=== PATIENT | female | born 1975 | race Caucasian/White ===

== ENCOUNTER 2020-03-22 07:30 | Outpatient (CLI) | payer BC, SELFPAY ==
--- NOTE | ~2020-03-22 | MM_ITS ---
EXAMINATION: MM screening [facility] BI w [facility] HISTORY: Screening mammogram TECHNIQUE: Craniocaudal and mediolateral oblique 3-D tomosynthesis images were obtained and synthetic 2-D images were generated. CAD analysis was submitted and interpreted. COMPARISON: 04/03/2018, 04/26/2011 BREAST PARENCHYMAL COMPOSITION: The breasts are heterogeneously dense, which may obscure small masses . FINDINGS: There is no evidence of suspicious mass, calcification, or architectural distortion to sugg est malignancy in either breast. There has been no suspicious interval change. IMPRESSION: 1. No mammographic evidence of malignancy. 2. Recommend routine screening mammography in one year. BI-RADS Category 1: Negative Reviewed, dictated and finalized at location A.
== END 2020-03-22 07:31 | disposition home or self-care (01) ==
LOC: ANHIMG 07:33
PROVIDERS: PCP Family Medicine Sports Medicine; Visit Provider Obstetrics & Gynecology
DX: Z12.31 Encounter for screening mammogram for malignant neoplasm of breast (principal)
CPT/HCPCS: 77063; 77067

== ENCOUNTER 2021-04-26 12:09 | Outpatient (CLI) | payer BC, SELFPAY ==
--- NOTE | ~2021-04-26 | MM_ITS ---
EXAMINATION: MM screening [facility] w [facility] HISTORY: Screening TECHNIQUE: Craniocaudal and mediolateral oblique 3-D tomosynthesis images were obtained and synthetic 2-D images were generated. CAD analysis was submitted and interpreted. COMPARISON: Comparison to multiple prior studies sequentially, with oldest reviewed study dated 04/26. BREAST PARENCHYMAL COMPOSITION: The breasts are extremely dense, which lowers the sensitivity of mamm ography. FINDINGS: There is no evidence of suspicious mass, calcification, or architectural distortion to sugg est malignancy in either breast. There has been no suspicious interval change. IMPRESSION: 1. No mammographic evidence of malignancy. 2. Recommend routine screening mammography in one year. BI-RADS Category 1: Negative Reviewed, dictated and finalized at location D.
== END 2021-04-26 12:10 | disposition home or self-care (01) ==
LOC: ANHIMG 12:13
PROVIDERS: PCP Family Medicine Sports Medicine; Visit Provider Obstetrics & Gynecology
DX: Z12.31 Encounter for screening mammogram for malignant neoplasm of breast (principal)
CPT/HCPCS: 77063; 77067

== ENCOUNTER 2022-10-24 13:55 | Outpatient (CLI) | payer BC, SELFPAY ==
--- NOTE | ~2022-10-24 | MM_ITS ---
EXAMINATION: MM screening [facility] BI w [facility] HISTORY: Screening mammogram TECHNIQUE: Craniocaudal and mediolateral oblique 3-D tomosynthesis images were obtained and synthetic 2-D images were generated. CAD analysis was submitted and interpreted. COMPARISON: 06/27/2021, 03/22/2020, 04/03/2018 BREAST PARENCHYMAL COMPOSITION: The breasts are heterogeneously dense, which may obscure small masses . FINDINGS: No suspicious mass, calcification, or architectural distortion are identified in either faye ast to suggest malignancy. There has been no suspicious interval change. IMPRESSION: 1. No mammographic evidence of malignancy. 2. Recommend routine screening mammography in one year. BI-RADS Category 1: Negative Reviewed, dictated and finalized at location A. STERED RADIATION THERAPIST
== END 2022-10-24 13:56 | disposition home or self-care (01) ==
LOC: ANHIMG 13:55
PROVIDERS: PCP Family Medicine Sports Medicine; Visit Provider Obstetrics & Gynecology
DX: Z12.31 Encounter for screening mammogram for malignant neoplasm of breast (principal)
CPT/HCPCS: 77063; 77067

== ENCOUNTER 2023-12-25 09:40 | Outpatient (CLI) | payer BC, SELFPAY ==
--- NOTE | ~2023-12-25 | MM_ITS ---
EXAMINATION: MM screening [facility] w [facility] HISTORY: Screening TECHNIQUE: Craniocaudal and mediolateral oblique 3-D tomosynthesis images were obtained and synthetic 2-D images were generated. CAD analysis was submitted and interpreted. COMPARISON: Comparison to multiple prior studies sequentially, with oldest reviewed study dated 04/03. BREAST PARENCHYMAL COMPOSITION: Dense: The breasts are heterogeneously dense, which may obscure small masses FINDINGS: There is no evidence of suspicious mass, calcification, or architectural distortion to sugg est malignancy in either breast. There has been no suspicious interval change. IMPRESSION: 1. No mammographic evidence of malignancy. 2. Recommend routine screening mammography in one year. BI-RADS Category 1: Negative Reviewed, dictated and finalized at location A.
== END 2023-12-25 09:41 | disposition home or self-care (01) ==
LOC: ANHIMG 09:44
PROVIDERS: PCP Family Medicine; Visit Provider Obstetrics & Gynecology
DX: Z12.31 Encounter for screening mammogram for malignant neoplasm of breast (principal)
CPT/HCPCS: 77063; 77067

== ENCOUNTER 2025-01-21 15:19 | Outpatient (CLI) | payer BC, SELFPAY ==
--- NOTE | ~2025-01-21 | MM_ITS ---
EXAMINATION: MM screening candelario BI w kimberly HISTORY: Screening TECHNIQUE: Craniocaudal and mediolateral oblique 3-D tomosynthesis images were obtained and synthetic 2-D images were generated. CAD analysis was submitted and interpreted. COMPARISON: Comparison to multiple prior studies sequentially, with oldest reviewed study dated 04/03/2018. BREAST PARENCHYMAL COMPOSITION: Dense: The breasts are extremely dense, which lowers the sensitivity of mammography. FINDINGS: There is no evidence of suspicious mass, calcification, or architectural distortion to sugg est malignancy in either breast. There has been no suspicious interval change. IMPRESSION: 1. No mammographic evidence of malignancy. 2. Recommend routine screening mammography in one year. BI-RADS Category 1: Negative Reviewed, dictated and finalized at location B.
--- OUTSIDE RECORDS SUMMARY | 2025-01-21 15:22 | XMS_ITS | Referral Summary ---
Author Organization [facility] [address] [facility] Address [address] [place] [address] Care Team Providers Care Aquatics Manager Name Role Phone Antione Wolfe MD Primary Care Provider [phone] Encounters Date Type Department Care Team Description 12/09/2024 10:30 AM BOW MACHINE OPERATOR Office Visit [facility] Hand Surgery [address] [place] [phone] Lencho Ward MD Ganglion cyst of dorsum of left wrist (Primary Dx) 11/18/2024 8:30 AM BOW MACHINE OPERATOR Office Visit [facility] Hand Surgery [address] [place] [phone] Lencho Ward MD Ganglion cyst of dorsum of left wrist (Primary Dx) 10/23/2024 7:00 AM BOW MACHINE OPERATOR Office Visit [facility] Hand Surgery [address] [place] [phone] Lencho Ward MD Ganglion cyst of dorsum of left wrist (Primary Dx) from Last 3 Months Allergies Active Allergy Reactions Criticality Noted Date Comments Bacitracin Rash Medium 08/18/2019 Rash Gluten Protein Other (See comments) Low 06/06/2022 Joint swelling Ulcers in mouth Lactose Diarrhea Low 06/06/2022 Levofloxacin Swelling Medium 08/05/2019 Swelling Neomycin Rash Medium 08/18/2019 Rash Jdwxraiv-Ygqbsgvauf-Mgd ymyxin Rash Medium 08/05/2019 Neomycin-Polymyxin B Gu Rash Medium 10/31/2019 Paroxetine Rash,Hives,Itching Medium 08/05/2019 Hives Polymyxin B Rash Medium 08/18/2019 Rash Medications FLUoxetine (PROzac) 20 mg capsule TK ONE C PO QD 3 9 Active EPINEPHrine (EPIPEN 2-WAQAS) 0.3 mg/0.3 mL auto-injection syringe EpiPen 2-Waqas 0.3 mg/0.3 mL injection, auto-injector INJ 0.3 MG IM ONCE MANY GIVE A SECOND DOSE IN 10 TO 15 MINUTES FOR PERSISTENT SYSTOMS Active aspirin 325 mg 81 mg Activ e cetirizine (ZyrTEC) 10 mg tablet Take 1 tablet (10 mg total) by mouth daily Active predniSONE (DELTASONE) 10 mg tablet Take 0.5 tablets (5 mg) by mouth daily 5 tablet 0 Active azelastine (ASTELIN) 137 mcg (0.1 %) nasal spray Administer 2 sprays into each nostril 2 (two) times a day 2 Active cholecalciferol (VITAMIN D-3) 2000 unit tablet Take 2 tablets (4,000 Units total) by mouth daily Active dicyclomine (BENTYL) 10 mg capsule Take 2 capsules (20 mg total) by mouth 4 (four) times a day before meals and nightly Active famotidine (PEPCID) 40 mg tablet Take 0.5 tablets (20 mg total) by mouth 2 (two) times a day Active fluticasone propionate (Flonase Allergy Relief) 50 mcg/actuation nasal spray Administer 1 spray into each nostril 2 (two) times a day Active fluticasone-ume clidin-vilanter (Trelegy Ellipta) 100-62.5-25 mcg inhaler Inhale 1 puff daily 4 Active amLODIPine (NORVASC) 2.5 mg tablet Take 1 tablet (2.5 mg total) by mouth daily 1 Active montelukast (SINGULAIR) 10 mg tablet Take 1 tablet (10 mg total) by mouth daily Active Vienva 0.1-20 mg-mcg per tablet 4 Active traMADoL (ULTRAM) 50 mg tablet Take 1 tablet (50 mg total) by mouth every 8 (eight) hours as needed for pain 30 tablet 4 Active zolpidem (AMBIEN) 5 mg tablet Take 1 tablet (5 mg total) by mouth nightly 4 Active Symbicort 160-4.5 mcg/actuation inhaler Inhale 2 puffs 2 (two) times a day Active atorvastatin (LIPITOR) 20 mg tablet Take 1 tablet (20 mg total) by mouth daily 4 Active triamcinolone (KENALOG) 0.1 % cream 1 tomas applied topically twice a day after shots for 7 days Active phenylephrine-a cetaminophen 5-325 mg tablet every 4 hours Active olopatadine (Pataday Once Daily Relief) 0.2 % ophthalmic solution daily Active norethindrone-e .estradioL-iron (Lo Loestrin Fe) 1 mg-10 mcg (24)/10 mcg (2) tablet per tablet daily Active noreth-ethinyl estradioL-iron 0.4mg-35mcg(21) and 75 mg (7) tablet,chewable Take 1 tablet by mouth nightly Active nirmatrelvir 300 mg-ritonavir 100 mg (Paxlovid) tablets,dose pack tablets in a dose pack every 12 hours 4 Active ipratropium (ATROVENT) 42 mcg (0.06 %) nasal spray every 8 hours Acti ve diazePAM (VALIUM) 5 mg tablet Take 1 tablet (5 mg total) by mouth 3 (three) times a day as needed 4 Active Active Problems Problem Noted Date Diagnosed Date Ganglion of left wrist 09/11/2024 Left wrist pain 09/11/2024 Left wrist tendinitis 03/07/2020 Ganglion cyst of dorsum of left wrist 08/05/2019 Social History Tobacco Use Types Packs/Day Years Used Date Smoking Tobacco: Never Smokeless Tobacco: Never Tobacco Cessation:Counseling Given: Not Answered Alcohol Use Standard Drinks/Week Comments Yes 0 (1 standard drink = 0.6 oz pur e alcohol) social AUDIT-C Answer Date Recorded Q1: How often do you have a drink containing alc ohol? Monthly or less 09/22/2024 Q2: How many drinks containi ng alcohol do you have on a typical day when you are drinking? 1 or 2 09/22/2024 Q3: How often do you have si x or more drinks on one occasion? Never 09/22/2024 Personal Safety Answer Date Recorded Have you ever been in or are you currently in a harmful physical or emotional relationship or is someone making you feel afraid or unsafe? Denies 09/22/2024 Comments No Sex and Gender Information Value Date Recorded Sex Assigned at Not on file Legal Sex Female 10:57 AM BOW MACHINE OPERATOR Gender Identity Not on file Sexual Orientation Not on file Last Filed Vital Signs Vital Sign Reading Time Taken Comments Blood Pressure 119/83 09/22/2024 11:10 AM BOW MACHINE OPERATOR Pulse 91 09/22/2024 11:15 AM BOW MACHINE OPERATOR Temperature 36.6 C (97.8 F) 09/22/2024 10:40 AM BOW MACHINE OPERATOR Respiratory Rate 18 09/22/2024 11:10 AM BOW MACHINE OPERATOR Oxygen Saturation 100% 09/22/2024 11:15 AM BOW MACHINE OPERATOR Inhaled Oxygen Concentration - - Weight 61.4 kg (135 lb 4.8 oz) 09/22/2024 7:35 A M BOW MACHINE OPERATOR Height 160 cm (5' 3 ) 09/22/2024 7:35 AM BOW MACHINE OPERATOR Body Mass Index 23.97 09/22/2024 7:35 AM BOW MACHINE OPERATOR Plan of Treatment Not on file Insurance [facility] [place] Care Teams Aquatics Manager Relationship Specialty Start Date End Date Antione Wolfe MD [address] [place] [address] PCP - General Family Medicine 10/05/24
--- OUTSIDE RECORDS SUMMARY | 2025-01-21 15:22 | XMS_ITS | Clinical Summary ---
Author Organization [facility] [address] [facility] Address [facility] [place] [address] Care Team Providers Care Manager Bank Name Role Phone Antione Wolfe MD Primary Care Provider Allergies Active Allergy Reactions Criticality Noted Date Comments Bacitracin Rash Medium 08/18/2019 Rash Gluten Protein Other (See comments) Low 06/06/2022 Joint swelling Ulcers in mouth Lactose Diarrhea Low 06/06/2022 Levofloxacin Swelling Medium 08/05/2019 Swelling Neomycin Rash Medium 08/18/2019 Rash Bxwohzlw-Wpwitpsspf-Kjw ymyxin Rash Medium 08/05/2019 Neomycin-Polymyxin B Gu [...] cyst of dorsum of left wrist 08/05/2019 Encounters Date Type Department Care Team Description 12/09/2024 10:30 AM RELIGIOUS ACTIVITIES DIRECTOR Office Visit [facility] Hand Surgery [address] [place] [phone] Lencho Ward MD Ganglion cyst of dorsum of left wrist (Primary Dx) 11/18/2024 8:30 AM RELIGIOUS ACTIVITIES DIRECTOR Office Visit [facility] Hand Surgery [address] [place] [phone] Lencho Ward MD Ganglion cyst of dorsum of left wrist (Primary Dx) 10/23/2024 7:00 AM RELIGIOUS ACTIVITIES DIRECTOR Office Visit [facility] Hand Surgery [address] [facility] [address] [place] [phone] Lencho Ward MD Ganglion cyst of dorsum of left wrist (Primary Dx) from Last 3 Months Surgical History Surgery Date Site/Laterality Comments TONSILLECTOMY WRIST SURGERY Left mass excision TUBAL LIGATION WRIST MASS EXCISION 09/22/2024 Left Medical History Medical History Date Comments Asthma Depression Hypercholesteremia Hypertension Allergic rhinitis PONV (postoperative nausea and vomiting) Motion sickness Family History Medical History Relation Name Comments Heart disease Father Arthritis Mother Relation Name Status Comments Father Mother Social History Tobacco Use Types Packs/Day Years [...] on file Legal Sex Female 10:57 AM RELIGIOUS ACTIVITIES DIRECTOR Gender Identity Not on file Sexual Orientation Not on file Obstetrics History Last Filed Vital Signs Vital Sign Reading Time Taken Comments Blood Pressure 119/83 09/22/2024 11:10 AM RELIGIOUS ACTIVITIES DIRECTOR Pulse 91 09/22/2024 11:15 AM RELIGIOUS ACTIVITIES DIRECTOR Temperature 36.6 C (97.8 F) 09/22/2024 10:40 AM RELIGIOUS ACTIVITIES DIRECTOR Respiratory Rate 18 09/22/2024 11:10 AM RELIGIOUS ACTIVITIES DIRECTOR Oxygen Saturation 100% 09/22/2024 11:15 AM RELIGIOUS ACTIVITIES DIRECTOR Inhaled Oxygen Concentration - - Weight 61.4 kg (135 lb 4.8 oz) 09/22/2024 7:35 A M RELIGIOUS ACTIVITIES DIRECTOR Height 160 cm (5' 3 ) 09/22/2024 7:35 AM RELIGIOUS ACTIVITIES DIRECTOR Body Mass Index 23.97 09/22/2024 7:35 AM RELIGIOUS ACTIVITIES DIRECTOR Plan of Treatment Health Maintenance Due Date Last Done Comments Breast Cancer Screening-Mammogram 1975 Cervical Cancer Screening 1975 Colon Cancer Screening-Colonoscopy 1975 Depression Screening 1975 Hepatitis C Screening 1975 DTaP/Tdap/Td Vaccine (1 - Tdap) 1986 Hepatitis B Screening 1993 Regular Well Visit/Exam 18-64 1993 Influenza Vaccine (Season Ended) 2025 09/22/2018, 09/06/2016, 07/11/2015, Additional history exists Pneumococcal vaccine <65 Aged Out 07/05/2016 No longer eligible based on patient's age to complete this topic Insurance [employer] Care Teams Manager Bank Relationship Specialty Start Date End Date Antione Wolfe MD [facility] [place] [address] PCP - General Family Medicine 10/05/24
--- OUTSIDE RECORDS SUMMARY | 2025-01-21 15:23 | XMS_ITS ---
Author Organization [facility] Address [address] [place] [address] Care Team Providers Care Automatic Chief Name Role Phone Yaneth Antione Primary Care Provider UnavailAdriana Obando Unavailable [phone] BarneyMoses Unavailable [phone] REASON FOR VISIT [facility], on Tirzepatide, started back program today 12/30/2024, reports no perceivable appetite suppression., Desired weight loss: 10-15 lbs, +0.5 lbs since last visit, -6.1 lbs total, No history MTC or MEN2 or pancreatitis, Concerned about future DM and OA Medications Medication SIG (Take, Route, Frequency, Duration) Notes Start Date End Date Status Ipratropium [place] 0.06 % 2 spray(s) intranasally 3 times a day for 30 days Not-Taking Symbicort 160-4.5 MCG/ACT 2 puff(s) inhaled 2 times a day for 30 days Not-Taking SIT (CLUSTER) VARIABLE PER SCHEDULE SC PER SCHEDULE for TO BE DETERMINED *Please review for potential replacement for e-prescription and drug interaction check* Not-Taking Dicyclomine HCl 10 MG 2 cap(s) orally 4 times a day PRN Not-Taking Trelegy Ellipta 100 MCG-62.5 MCG-25 MCG/INH 1 PUFF(S) INHALED ONCE A DAY for 30 DAYS *Please review and pick correct strength-formula tion from Medispan options. If intended option is not shown, discontinue and re-order from Quick Search* 12/17/2023 Not-Taking OLOPATADINE NASAL 665 MCG/INH 2 SPRAY(S) INTRANASALLY 2 TIMES A DAY for 30 DAYS *Please review for potential replacement for e-prescription and drug interaction check* Not-Taking SIT (TRADITIONAL) VARIABLE PER SCHEDULE SC PER SCHEDULE for TO BE DETERMINED *Please review for potential replacement for e-prescription and drug interaction check* Not-Taking Montelukast Sodium 10 MG TAKE 1 TABLET BY MOUTH DAILY for 30 Not-Taking Pataday 0.2 % 1 gtt in each affected eye once a day Not-Taking Paxlovid (300/100) 20 x 150 MG & 10 x 100MG 3 tablets Orally Twice a day for 5 days 06/01/2024 Not-Taking Flonase Allergy Relief 50 MCG/ACT 1 spray(s) intranasally twice a day for 30 days Active ZyrTEC Allergy 10 MG 2 tab(s) orally Qday, and prior to SCIT dosing Active Mupirocin 2 % 1 application Externally Twice a day for 5 day(s) 11/24/2024 Active Auvi-Q 0.3 MG/0.3ML as directed intramuscularly once for 30 day(s) Active SUDAFED PE PRESSURE PLUS PAIN 325 MG-5 MG 2 TAB(S) ORALLY EVERY 4 HOURS *Please review for potential replacement for e-prescription and drug interaction check* Active D3 2000 INTL UNITS DIRECTED ORALLY ONCE A DAY for 30 DAY(S) *Please review and pick correct strength-formula tion from MiTurno options. If intended option is not shown, discontinue and re-order from Quick Search* Active FLUoxetine HCl 20 MG 1 cap(s) orally once a day Active Singulair 10 MG 1 tab(s) orally once a day for 30 day(s) Active Atorvastatin Calcium 10 MG 1 tab(s) orally once a day Active Lo Loestrin Fe 1 MG-10 MCG / 10 MCG 1 tab(s) orally once a day Active Symbicort 160-4.5 MCG/ACT INHALE 2 PUFFS BY MOUTH TWICE DAILY for 30 Active Azelastine HCl 137 MCG/SPRAY 2 spray(s) intranasally 2 times a day for 30 day(s) 11/15/2021 Active TRIAMCINOLONE ACETONIDE TOPICAL 0.1% 1 tomas applied topically twice a day after shots for 7 days Active amLODIPine Besylate 2.5 MG 1 tab(s) orally once a day for 30 day(s) 05/30/2021 Active Nasal Washes N/A as directed intranasally Active VORTEX HOLDING CHAMBER as directed Active SYMBICORT 160 mcg-4.5 mcg/inh 2 puff(s) inhaled 2 times a day for 30 days Active PROAIR HFA CFC free 90 mcg/inh 2 puff(s) inhaled 4 times a day Active MONTELUKAST SODIUM 10 mg 1 tab(s) orally once a day for 30 day(s) Active AZELASTINE HYDROCHLORIDE NASAL 137 mcg/inh 2 spray(s) intranasally 2 times a day for 30 days Active AUVI -Q 0.3 mg as directed intramuscularly once for 30 day(s) Active FLONASE 50 mcg/inh 1 spray(s) intranasally twice a day for 30 days Active SIT (TRADITIONAL) variable per schedule SC per schedule for to be determined Active ZYRTEC 10 mg 2 tab(s) orally Qday, and prior to SCIT dosing Active DICYCLOMINE 10 mg 2 cap(s) orally 4 times a day PRN Active VANICREAM MOISTURIZING CREAM N/A as necessary Apply to external surfaces as often as needed to face, hands, feet or body For daily use by the entire family for 30 day(s) Active PATADAY 0.2% 1 gtt in each affected eye once a day Active ATORVASTATIN 10 mg 1 tab(s) orally once a day Active LO LOESTRIN FE with iron biphasic 10 mcg-1 mg 1 tab(s) orally once a day Active FLUOXETINE 20 mg 1 cap(s) orally once a day Active Famotidine 40 mg 1 tab(s) orally 30 mins prior to SCIT for 30 days Active Vital Signs Height 62.4 in 01/06/2025 Weight 138.2 lbs 01/06/2025 BMI 24.95 kg/m2 01/06/2025 Encounters Encounter Location Date Provider Diagnosis [facility] ([address]) [address] [address] 01/06/2025 Moses Corley Chronic fatigue, unspecified R53.82 ; Other fatigue R53.83 ; Abnormal weight gain R63.5 and Other malaise R53.81 Assessments Encounter Date Diagnosis (ICD Code) Assessment Notes Treatment Notes Treatment Clinical Notes Section Notes 01/06/2025 Chronic fatigue, unspecified (ICD-10 - R53.82) 01/06/2025 Other fatigue (ICD-10 - R53.83) 01/06/2025 Abnormal weight gain (ICD-10 - R63.5) 01/06/2025 Other malaise (ICD-10 - R53.81) Plan Of Treatment Next Appt Details Follow Up: 1 Week, Reason: G LP-1 Agonist Administration Provider Name:Moses Corley , 01/27/2025 02:30:00 PM, [address]22 [address], [address], [address], Procedure Notes * Category Sub-Category Detail Notes [facility] tirzepatide Indication: weig ht loss Concentration: 10 mg/mL Volume Administered: 0.2 mL Dose Administered: 2 mg Increase dosing due to planned titration per protocol and desires more appetite suppression Route: SQ Location: [facility] Frequency: weekly Lot Number/Expiration: Medication Source: AH Nutrac eutical Compounding Adverse Reaction: None Progress Notes * Karime GUZMANOB:1975 ( 49 yo F)Acc No.[id number]:01/06/2025 Weight Loss Patient: Lovely HERNANDEZ Provider: Madelin Corley MD :1975 A ge:49 Y S ex:Female Date:01/06/2025 Address:[address] [place] [address] Pcp:Antione Wolfe Subjective: * Chief Complaints: * 1 . [facility], on Tirzepatide, started back program today 12/30/2024, reports no perceivable appetite suppression.. 2. Desired weight loss: 10-15 lbs, +0.5 lbs since last visit, -6.1 lbs total. 3. No history MTC or MEN2 or pancreatitis. 4. Concerned about future DM and OA. * Medical History: * Medications: T aking Famotidine 40 mg tablet 1 tab(s) orally 30 mins prior to SCIT , Taking Famotidine 40 mg tablet 1 tab(s) orally 30 mins prior to SCIT , Taking PATADAY 0.2% solution 1 gtt in each affected eye once a day , Taking VANICREAM MOISTURIZING CREAM N/A Moisturizing Cream as necessary Apply to external surfaces as often as needed to face, hands, feet or body For daily use by the entire family , Taking LO LOESTRIN FE with iron biphasic 10 mcg-1 mg tablet 1 tab(s) orally once a day , Taking ATORVASTATIN 10 mg tablet 1 tab(s) orally once a day , Taking FLUOXETINE 20 mg capsule 1 cap(s) orally once a day , Taking DICYCLOMINE 10 mg capsule 2 cap(s) orally 4 times a day , Notes to Pharmacist: PRN, Taking ZYRTEC 10 mg tablet 2 tab(s) orally Qday, and prior to SCIT dosing , Taking FLONASE 50 mcg/inh spray 1 spray(s) intranasally twice a day , Taking AUVI -Q 0.3 mg kit as directed intramuscularly once , Taking SIT (TRADITIONAL) variable see record per schedule SC per schedule , Taking MONTELUKAST SODIUM 10 mg tablet 1 tab(s) orally once a day , Taking SYMBICORT 160 mcg-4.5 mcg/inh aerosol 2 puff(s) inhaled 2 times a day , Taking VORTEX HOLDING CHAMBER as directed , Taking PROAIR HFA CFC free 90 mcg/inh aerosol 2 puff(s) inhaled 4 times a day , Taking AZELASTINE HYDROCHLORIDE NASAL 137 mcg/inh spray 2 spray(s) intranasally 2 times a day , Taking TRIAMCINOLONE ACETONIDE TOPICAL 0.1% cream 1 tomas applied topically twice a day after shots , Taking Nasal Washes N/A 1 quart of sterilized tap water or distilled water, 1 tsp NaCl, 1 pinch of baking soda as directed intranasally , Taking amLODIPine Besylate 2.5 MG Tablet 1 tab(s) orally once a day , Taking Azelastine HCl 137 MCG/SPRAY Solution 2 spray(s) intranasally 2 times a day , Taking Symbicort 160-4.5 MCG/ACT Aerosol INHALE 2 PUFFS BY MOUTH TWICE DAILY , Taking Lo Loestrin Fe 1 MG-10 MCG / 10 MCG Tablet 1 tab(s) orally once a day , Taking Atorvastatin Calcium 10 MG Tablet 1 tab(s) orally once a day , Taking FLUoxetine HCl 20 MG Capsule 1 cap(s) orally once a day , Taking D3 2000 INTL UNITS CAPSULE DIRECTED ORALLY ONCE A DAY , Notes to Pharmacist: *Please review and pick correct strength-formulation from WorkSimplean options. If intended option is not shown, discontinue and re-order from Quick Search*, Taking Singulair 10 MG Tablet 1 tab(s) orally once a day , Taking SUDAFED PE PRESSURE PLUS PAIN 325 MG-5 MG TABLET 2 TAB(S) ORALLY EVERY 4 HOURS , Notes to Pharmacist: *Please review for potential replacement for e-prescription and drug interaction check*, Taking ZyrTEC Allergy 10 MG Tablet 2 tab(s) orally Qday, and prior to SCIT dosing , Taking Flonase Allergy Relief 50 MCG/ACT Suspension 1 spray(s) intranasally twice a day , Taking Auvi-Q 0.3 MG/0.3ML Solution Auto-injector as directed intramuscularly once , Taking Mupirocin 2 % Ointment 1 application Externally Twice a day , Not-Taking/PRN Montelukast Sodium 10 MG Tablet TAKE 1 TABLET BY MOUTH DAILY , Not-Taking/PRN SIT (TRADITIONAL) VARIABLE SEE RECORD PER SCHEDULE SC PER SCHEDULE , Notes to Pharmacist: *Please review for potential replacement for e-prescription and drug interaction check*, Not- Taking/PRN Paxlovid (300/100) 20 x 150 MG & 10 x 100MG Tablet Therapy Pack 3 tablets Orally Twice a day , Not-Taking/PRN Pataday 0.2 % Solution 1 gtt in each affected eye once a day , Not-Taking/PRN OLOPATADINE NASAL 665 MCG/INH SPRAY 2 SPRAY(S) INTRANASALLY 2 TIMES A DAY , Notes to Pharmacist: *Please review for potential replacement for e-prescription and drug interaction check*, Not-Taking/PRN Trelegy Ellipta 100 MCG-62.5 MCG-25 MCG/INH POWDER 1 PUFF(S) INHALED ONCE A DAY , Notes to Pharmacist: *Please review and pick correct strength-formulation from MiTurno options. If intended option is not shown, discontinue and re-order from Quick Search*, Not-Taking/PRN Dicyclomine HCl 10 MG Capsule 2 cap(s) orally 4 times a day , Notes to Pharmacist: PRN, Not-Taking/PRN Symbicort 160-4.5 MCG/ACT Aerosol 2 puff(s) inhaled 2 times a day , Not-Taking/PRN Ipratropium [place] 0.06 % Solution 2 spray(s) intranasally 3 times a day , Not-Taking/PRN SIT (CLUSTER) VARIABLE SEE RECORD PER SCHEDULE SC PER SCHEDULE , Notes to Pharmacist: *Please review for potential replacement for e-prescription and drug interaction check* Objective: * Vitals: H t: 62.4 in, Wt: 138.2 lbs, BMI:24.95Index. Assessment: * Assessment: 1. A bnormal weight gain - R63.5 (Primary) 2 . C hronic fatigue, unspecified - R53.82 3 . O ther fatigue - R53.83 4 . O ther malaise - R53.81 Plan: * Treatment: * Procedures: [facility] Weight Management: tirzepatide I ndication w eight loss C oncentration 1 0 mg/mL V olume Administered 0 .2 mL D ose Administered 2 mg Increase dosing due to planned titration per protocol and desires more appetite suppression R oute S Q L ocation R UA F requency w eekly L ot Number/Expiration 0 M edication Source A H Nutraceutical Compounding A dverse Reaction N one * Follow Up: 1 Week (Reason: GLP-1 Agonist Administration) * Billing Information: * Visit Code: * Procedure Codes: * Electronic signature of Sulema Corley MD, FAAAAI on 01/21/2025 at 03:23 PM CDT Sign off status: Pending * Provider: Madelin Corley MD Date: 0 01/06/2025 Generated for Printi ng/Wojciech/eTransmitting on: 01/21/2025 03:23 PM CDT
--- OUTSIDE RECORDS SUMMARY | 2025-01-21 15:23 | XMS_ITS | Clinical Summary ---
Author Organization [facility] Address [address] [place] [address] Care Team Providers Care School Age Program Associate Name Role Phone Gurdeep Gregorio MD Primary Care Provider [phone] Allergies Active Allergy Reactions Criticality Noted Date Comments Gluten Meal Other (see comment) 06/06/2022 Joint swelling Ulcers in mouth Lactose Diarrhea 06/06/2022 Levofloxacin Swelling Medium 08/05/2019 Neomycin-Bacitracin Zn-Polymyx Rash Medium 08/05/2019 Paroxetine Hives,Itching,Rash Medium 08/05/2019 Medications Vitamin D3, cholecalciferol , 2000 UNIT Tab tablet Take 4,000 Units by mouth daily. Active montelukast (SINGULAIR) 10 MG tablet Take 10 mg by mouth nightly at bedtime. Active cetirizine (ZYRTEC) 10 MG tablet Take 10 mg by mouth nightly. Active amLODIPine (NORVASC) 2.5 MG tablet Take 2.5 mg by mouth nightly. Active atorvastatin (LIPITOR) 20 MG tablet Take 20 mg by mouth nightly at bedtime. Active Norethindrone & Ethinyl Estradiol-Fe (FEMCON FE) 0.4-35 MG-MCG Chew Tab Chew 1 tablet by mouth nightly. Active FLUoxetine (PROZAC) 20 MG capsule Take 20 mg by mouth daily. Active fluticasone propionate (FLONASE) 50 MCG/ACT nasal spray 2 sprays by Each Nostril route daily. Active azelastine (ASTELIN) 0.1 % nasal spray 1 spray by Nasal route daily. Use in each nostril as directed Active budesonide-form oterol (SYMBICORT) 160-4.5 MCG/ACT inhaler Inhale 2 puffs into the lungs 2 (two) times daily. Active albuterol sulfate HFA 108 (90 Base) MCG/ACT inhaler Inhale 2 puffs into the lungs every 6 (six) hours as needed for Wheezing. Active HYDROcodone-olivia taminophen (NORCO) 5-325 MG tabletIndicatio ns:Acute Pain < 7 Day Supply Take 1 tablet by mouth every 4 (four) hours as needed. Indications: Acute Pain < 7 Day Supply 20 tablet 06/15/2022 Active Active Problems No known active problems Family History Medical History Relation Comments Heart Disease Father Heart Disease Maternal Grandfather Heart Disease Paternal Grandfather Relation Status Comments Father (Age 78) Maternal Grandfather Mother Alive Paternal Grandfather Social History Tobacco Use Types Packs/Day Years Used Date Smoking Tobacco: Never Smokeless Tobacco: Never Alcohol Use Standard Drinks/Week Comments Yes 0 (1 standard drink = 0.6 oz pur e alcohol) 1 per month- rare Comments No Sex and Gender Information Value Date Recorded Sex Assigned at Not on file Legal Sex Female 7:30 PM CDT Gender Identity Not on file Sexual Orientation Not on file Last Filed Vital Signs Vital Sign Reading Time Taken Comments Blood Pressure 138/83 06/15/2022 3:45 PM CDT Pulse 75 06/15/2022 3:45 PM CDT Temperature 36.9 C (98.5 F) 06/15/2022 3:45 PM CDT Respiratory Rate 18 06/15/2022 3:45 PM CDT Oxygen Saturation 96% 06/15/2022 3:45 PM CDT Inhaled Oxygen Concentration - - Weight 64.8 kg (142 lb 13.7 oz) 06/15/2022 7:52 AM CDT Height 160 cm (5' 3 ) 06/15/2022 7:52 AM CDT Body Mass Index 25.31 06/15/2022 7:52 AM CDT Plan of Treatment Health Maintenance Due Date Last Done Comments Cervical Cancer Screening Pa p Smear (Age 30 to 64) Every 3 Years 1975 Colorectal Cancer Screening Colonoscopy (10 Years) 1975 Annual Physical 1978 Hepatitis C 1993 DTaP, Tdap and Td Vaccines ( 1 - Tdap) 1994 Hepatitis B Vaccines (1 of 3 - 19+ 3-dose series) 1994 Cervical Cancer Screening Pa p with HPV Testing (Age 30 to 64) Every 5 Years 2005 Cervical Cancer Screening wi th HPV 2005 Mammogram Screening 2015 COVID-19 Vaccine (4 - 2023-2 5 season) 2024 07/14/2021, 12/08/2020, 11/10/2020 Pneumococcal Vaccine: Pediatrics (0 to 5 Years) and At-Risk Patients (6 to 49 Years) Aged Out 11/14/2020, 07/05/2016 No longer eligible based on patient's age to complete this topic Meningococcal B Vaccine Aged Out No l onger eligible based on patient's age to complete this topic Meningococcal Vaccine Aged Out No nithya reol eligible based on patient's age to complete this topic RSV Immunizations Under 20 Months Aged Out No longer eligible b ased on patient's age to complete this topic Insurance [facility] Care Teams School Age Program Associate Relationship Specialty Start Date End Date Gurdeep Gregorio MD [facility] [place] [address] PCP - General FAMILY MEDICINE SPORTS MEDICINE 06/06/22
--- OUTSIDE RECORDS SUMMARY | 2025-01-21 15:23 | XMS_ITS ---
Author Organization [facility] Address [address] [place] [address] Care Team Providers Care Ch[employer]ney Construction Supervisor Name Role Phone Antione Wolfe Primary Care Provider UnavailAdriana Obando Unavailable [phone] BarneyMoses Unavailable [phone] REASON FOR VISIT [facility], on Tirzepatide, improved appetite suppression, no side effects, Desired weight loss: 10-15 lbs, -0.4 lbs since last visit, -6.5 lbs total, No history MTC or MEN2 or pancreatitis, Concerned about future DM and OA Medications Medication SIG (Take, Route, Frequency, Duration) Notes Start Date End Date Status SIT (CLUSTER) VARIABLE PER SCHEDULE SC PER SCHEDULE for TO BE DETERMINED *Please review for potential replacement for e-prescription and drug interaction check* Not-Taking Ipratropium [place] 0.06 % 2 spray(s) intranasally 3 times a day for 30 days Not-Taking Dicyclomine HCl 10 MG 2 cap(s) orally 4 times a day PRN Not-Taking Symbicort 160-4.5 MCG/ACT 2 puff(s) inhaled 2 times a day for 30 days Not-Taking Trelegy Ellipta 100 MCG-62.5 MCG-25 MCG/INH 1 PUFF(S) INHALED ONCE A DAY for 30 DAYS *Please review and pick correct strength-formula tion from Medispan options. If intended option is not shown, discontinue and re-order from Quick Search* 12/17/2023 Not-Taking Paxlovid (300/100) 20 x 150 MG & 10 x 100MG 3 tablets Orally Twice a day for 5 days 06/01/2024 Not-Taking Pataday 0.2 % 1 gtt in each affected eye once a day Not-Taking Montelukast Sodium 10 MG TAKE 1 TABLET BY MOUTH DAILY for 30 Not-Taking SIT (TRADITIONAL) VARIABLE PER SCHEDULE SC PER SCHEDULE for TO BE DETERMINED *Please review for potential replacement for e-prescription and drug interaction check* Not-Taking OLOPATADINE NASAL 665 MCG/INH 2 SPRAY(S) INTRANASALLY 2 TIMES A DAY for 30 DAYS *Please review for potential replacement for e-prescription and drug interaction check* Not-Taking Auvi-Q 0.3 MG/0.3ML as directed intramuscularly once for 30 day(s) Active Mupirocin 2 % 1 application Externally Twice a day for 5 day(s) 11/24/2024 Active SUDAFED PE PRESSURE PLUS PAIN 325 MG-5 MG 2 TAB(S) ORALLY EVERY 4 HOURS *Please review for potential replacement for e-prescription and drug interaction check* Active ZyrTEC Allergy 10 MG 2 tab(s) orally Qday, and prior to SCIT dosing Active Flonase Allergy Relief 50 MCG/ACT 1 spray(s) intranasally twice a day for 30 days Active Atorvastatin Calcium 10 MG 1 tab(s) orally once a day Active FLUoxetine HCl 20 MG 1 cap(s) orally once a day Active Lo Loestrin Fe 1 MG-10 MCG / 10 MCG 1 tab(s) orally once a day Active D3 2000 INTL UNITS DIRECTED ORALLY ONCE A DAY for 30 DAY(S) *Please review and pick correct strength-formula tion from Smarty Ants options. If intended option is not shown, discontinue and re-order from Quick Search* Active Singulair 10 MG 1 tab(s) orally once a day for 30 day(s) Active Azelastine HCl 137 MCG/SPRAY 2 spray(s) intranasally 2 times a day for 30 day(s) 11/15/2021 Active Symbicort 160-4.5 MCG/ACT INHALE 2 PUFFS BY MOUTH TWICE DAILY for 30 Active TRIAMCINOLONE ACETONIDE TOPICAL 0.1% 1 tomas applied topically twice a day after shots for 7 days Active Nasal Washes N/A as directed intranasally Active amLODIPine Besylate 2.5 MG 1 tab(s) orally once a day for 30 day(s) 05/30/2021 Active MONTELUKAST SODIUM 10 mg 1 tab(s) orally once a day for 30 day(s) Active SYMBICORT 160 mcg-4.5 mcg/inh 2 puff(s) inhaled 2 times a day for 30 days Active AZELASTINE HYDROCHLORIDE NASAL 137 mcg/inh 2 spray(s) intranasally 2 times a day for 30 days Active VORTEX HOLDING CHAMBER as directed Active PROAIR HFA CFC free 90 mcg/inh 2 puff(s) inhaled 4 times a day Active AUVI -Q 0.3 mg as directed intramuscularly once for 30 day(s) Active SIT (TRADITIONAL) variable per schedule SC per schedule for to be determined Active FLONASE 50 mcg/inh 1 spray(s) intranasally twice a day for 30 days Active DICYCLOMINE 10 mg 2 cap(s) orally 4 times a day PRN Active ZYRTEC 10 mg 2 tab(s) orally Qday, and prior to SCIT dosing Active PATADAY 0.2% 1 gtt in each affected eye once a day Active ATORVASTATIN 10 mg 1 tab(s) orally once a day Active FLUOXETINE 20 mg 1 cap(s) orally once a day Active VANICREAM MOISTURIZING CREAM N/A as necessary Apply to external surfaces as often as needed to face, hands, feet or body For daily use by the entire family for 30 day(s) Active LO LOESTRIN FE with iron biphasic 10 mcg-1 mg 1 tab(s) orally once a day Active Famotidine 40 mg 1 tab(s) orally 30 mins prior to SCIT for 30 days Active Vital Signs Height 62.4 in 01/12/2025 Weight 137.8 lbs 01/12/2025 BMI 24.88 kg/m2 01/12/2025 Encounters Encounter Location Date Provider Diagnosis [facility] ([address]) [address] [address] 01/12/2025 Moses Corley Chronic fatigue, unspecified R53.82 ; Other fatigue R53.83 ; Abnormal weight gain R63.5 and Other malaise R53.81 Assessments Encounter Date Diagnosis (ICD Code) Assessment Notes Treatment Notes Treatment Clinical Notes Section Notes 01/12/2025 Chronic fatigue, unspecified (ICD-10 - R53.82) 01/12/2025 Other fatigue (ICD-10 - R53.83) 01/12/2025 Abnormal weight gain (ICD-10 - R63.5) 01/12/2025 Other malaise (ICD-10 - R53.81) Plan Of Treatment Next Appt Details Follow Up: 1 Week, Reason: G LP-1 Agonist Administration Provider Name:Moses H. Barney , 01/27/2025 02:30:00 PM, [address], [address], [address], Procedure Notes * Category Sub-Category Detail Notes [facility] tirzepatide Indication: weig ht loss Concentration: 10 mg/mL Volume Administered: 0.2 mL Dose Administered: 2 mg Route: SQ Location: [facility] Frequency: weekly Lot Number/Expiration: Medication Source: Nutraceutical Comp ounding Adverse Reaction: None Progress Notes * Thor GUZMANBrennenOB:1975 ( 49 yo F)Acc No.[id number]:01/12/2025 Weight Loss Patient: Lovely HERNANDEZ Provider: Madelin Corley MD :1975 A ge:49 Y S ex:Female Date:01/12/2025 Address:[address] [place] [address] Pcp:Antione Wolfe Subjective: * Chief Complaints: * 1 . [facility], on Tirzepatide, improved appetite suppression, no side effects. 2. Desired weight loss: 10-15 lbs, -0.4 lbs since last visit, -6.5 lbs total. 3. No history MTC or [...] *Please review and pick correct strength-formulation from Medispan options. If intended option is [...] *Please review and pick correct strength-formulation from Medispan options. If intended option is not shown, discontinue and re-order from Quick Search*, Not-Taking/PRN Dicyclomine HCl 10 MG Capsule 2 cap(s) orally 4 times a day , Notes to Pharmacist: PRN, Not-Taking/PRN Symbicort 160-4.5 MCG/ACT Aerosol 2 puff(s) inhaled 2 times a day , Not-Taking/PRN Ipratropium [place] 0.06 % Solution 2 spray(s) intranasally 3 times a day , Not-Taking/PRN SIT (CLUSTER) VARIABLE SEE RECORD PER SCHEDULE SC PER SCHEDULE , Notes to Pharmacist: *Please review for potential replacement for e-prescription and drug interaction check* Objective: * Vitals: H t: 62.4 in, Wt: 137.8 lbs, BMI:24.88Index. Assessment: * Assessment: 1. A bnormal weight [...] .2 mL D ose Administered 2 mg R oute S Q L ocation L UA F requency w eekly L ot [...] * Provider: Madelin Corley MD Date: 0 01/12/2025 Generated for Joseluisi ace/Wojciech/eTransmitting on: 0 01/21/2025 03:23 PM CDT
--- OUTSIDE RECORDS SUMMARY | 2025-01-21 15:23 | XMS_ITS | Patient Health Record ---
Author Organization [facility] Address [address] [place] [id number] Care Team Providers Care Event Designer Name Role Phone Antione Wolfe Primary Care Provider UnavailAdriana Obando Unavailable [phone] [facility] Unavailable [phone] [facility], Provider Unavailable Unavailab le Allergies Allergen (clinical drug ingredient) Drug/Non Drug Allergy documented on EMR Reaction Allergy Type Onset Date Status Levaquin Leg swelling, joint pain, tendonitis Drug Allergy Active Neosporin rash Drug Allergy Active Results Component Value Reference Range Notes -Hemoglobin A1c Reviewed date:02/02/2024 08:34:16 PM Interpretation:Normal Performing Lab:[facility], [address] [place] [id number], Phone - [phone], Director - Alexander Notes/Report: Hemoglobin A1c 5.2 4.8-5.6 % . Prediabetes: 5.7 - 6.4 Diabetes: >6.4 Glycemic control for adults with diabetes: <7.0 HRT Female Pre Pellet Reviewed date:02/02/2024 08:35:20 PM Interpretation:Abnormal Performing Lab:[facility], [address] [place], [place] [id number], Phone - [phone], Director - Alexander Notes/Report: Glucose 76 70-99 mg/dL BUN 11 6-24 mg/dL Creatinine 0.79 0.57-1.00 mg/dL eGFR 92 >59 mL/min/1.73 BUN/Creatinine Ratio 14 9-23 Sodium 136 134-144 mmol/L Potassium 4.3 3.5-5.2 mmol/L Chloride 102 96-106 mmol/L Carbon Dioxide, Total 20 20-29 mmol/L Calcium 9.5 8.7-10.2 mg/dL Protein, Total 7.0 6.0-8.5 g/dL Albumin 4.3 3.9-4.9 g/dL Globulin, Total 2.7 1.5-4.5 g/dL A/G Ratio 1.6 1.2-2.2 Bilirubin, Total 0.6 0.0-1.2 mg/dL Alkaline Phosphatase 27 44-121 IU/L AST (SGOT) 20 0-40 IU/L ALT (SGPT) 22 0-32 IU/L Vitamin B12 419 163-3611 pg/mL Vitamin D, 25-Hydroxy 37.7 30.0-100.0 ng/mL Vitamin D deficiency has been defined by the [place] of [employer] and an Endocrine Society practice guideline as a level of serum 25-OH vitamin D less than 20 ng/mL (1,2). The Endocrine Society went on to further define vitamin D insufficiency as a level between 21 and 29 ng/mL (2). 1. IOM ([place] of [employer]). 2010. Dietary reference intakes for calcium and D. [place]: The National Academies Press. 2. Blu MF, Semaj NC, John LACY, et al. Evaluation, treatment, and prevention of vitamin D deficiency: an Endocrine Society clinical practice guideline. JCEM. 2010; 96(7):1911-30. TSH 1.560 0.450-4.500 uIU/mL Triiodothyronine (T3), Free 2.9 2.0-4.4 pg/mL T4,Free(Direct) 1.13 0.82-1.77 ng/dL Thyroid Peroxidase (TPO) Ab 18 0-34 IU/mL Testosterone 11 4-50 ng/dL FSH 2.4 Adult Female Range Follicular phase 3.5 - 12.5 Ovulation phase 4.7 - 21.5 Luteal phase 1.7 - 7.7 Postmenopausal 25.8 - 134.8 Estradiol <5.0 Adult Female Range Follicular phase 12.5 - 166.0 Ovulation phase 85.8 - 498.0 Luteal phase 43.8 - 211.0 Postmenopausal <6.0 - 54.7 1st trimester 215.0 - >4300.0 Kathryn ECLIA methodology WBC 6.7 3.4-10.8 x10E3/uL RBC 4.19 3.77-5.28 x10E6/uL Hemoglobin 13.4 11.1-15.9 g/dL Hematocrit 39.6 34.0-46.6 % MCV 95 79-97 fL MCH 32.0 26.6-33.0 pg MCHC 33.8 31.5-35.7 g/dL RDW 12.1 11.7-15.4 % Platelets 344 150-450 x10E3/uL Neutrophils 61 Not Estab. % Lymphs 29 Not Estab. % Monocytes 8 Not Estab. % Eos 1 Not Estab. % Basos 1 Not Estab. % Neutrophils (Absolute) 4.1 1.4-7.0 x10E3/uL Lymphs (Absolute) 1.9 0.7-3.1 x10E3/uL Monocytes(Absolute) 0.5 0.1-0.9 x10E3/uL Eos (Absolute) 0.1 0.0-0.4 x10E3/uL Baso (Absolute) 0.0 0.0-0.2 x10E3/uL Immature Granulocytes 0 Not Estab. % Immature Grans (Abs) 0.0 0.0-0.1 x10E3/uL VITAMIN D, 25-OH, TOTAL, IA Reviewed date:02/17/2024 09:05:54 AM Interpretation:Abnormal Performing Lab:Carlos, [facility] [address] [place] [address], [address], [place], [address] Jc Shafer PhD,[facility] Notes/Report: NON-FASTING VITAMIN D, 25-OH, TOTAL 36.2 >29.9 ng/mL This test was developed and its analytical performance characteristics have been determined by [facility]. It has not been cleared or approved by the U.S. Food and Drug Administration. This assay has been validated pursuant to the CLIA regulations and is used for clinical purposes. Vitamin D, 25-Hydroxy reports concentrations of two common forms, 25-OHD2 and 25-OHD3. 25-OHD3 indicates both endogenous production and supplementation. 25-OHD2 is an indicator of exogenous sources, such as diet or supplementation. Therapy is based on measurement of Total 25-OHD, with levels <20 ng/mL indicative of Vitamin D deficiency, while levels between 20 ng/mL and 30 ng/mL suggest insufficiency. Optimal levels are >=30 ng/mL. Vitamin D, 25-Hydroxy reports concentrations of two common forms, 25-OHD2 and 25-OHD3. 25-OHD3 indicates both endogenous production and supplementation. 25-OHD2 is an indicator of exogenous sources, such as diet or supplementation. Therapy is based on measurement of Total 25-OHD, with levels <20 ng/mL indicative of Vitamin D deficiency, while levels between 20 ng/mL and 30 ng/mL suggest insufficiency. Optimal levels are > or = 30 ng/mL. VITAMIN D, 25-OH, D3 36.2 This test was developed and its analytical performance characteristics have been determined by [facility]. It has not been cleared or approved by the FDA. This assay has been validated pursuant to the CLIA regulations and is used for clinical purposes. VITAMIN D, 25-OH, D2 <1.0 This test was developed and its analytical performance characteristics have been determined by [facility]. It has not been cleared or approved by the FDA. This assay has been validated pursuant to the CLIA regulations and is used for clinical purposes. IMMUNOGLOBULINS G/A/M Reviewed date:02/17/2024 09:05:29 AM Interpretation:Normal Performing Lab:[facility], [address] [place], [address] Cirilo Sanford MD Notes/Report: NON-FASTING; NON-FASTING; NON-FASTING IMMUNOGLOBULIN A 235 47-310 mg/dL IMMUNOGLOBULIN G 437 078-0406 mg/dL IMMUNOGLOBULIN M 96 50-300 mg/dL STREPTOCOCCUS PNEUMONIAE AB (IGG) (23 SEROTYPES) Reviewed date:02/17/2024 09:11:11 AM Interpretation:Abnormal Performing Lab:[facility],, [address] [place], [address] Char Clemens MD,PhD,[facility] Notes/Report: NON-FASTING; NON-FASTING; NON-FASTING SEROTYPE 1 (1) <0.3 SEROTYPE 2 (2) 1.4 SEROTYPE 3 (3) 0.4 SEROTYPE 4 (4) 0.6 SEROTYPE 5 (5) <0.3 SEROTYPE 8 (8) 4.6 SEROTYPE 9 (9N) 4.1 SEROTYPE 12 (12F) <0.3 SEROTYPE 14 (14) 1.7 SEROTYPE 17 (17F) 0.4 SEROTYPE 19 (19F) 1.1 SEROTYPE 20 (20) 0.5 SEROTYPE 22 (22F) 1.5 SEROTYPE 23 (23F) <0.3 SEROTYPE 26 (6B) 0.6 SEROTYPE 34 (10A) 0.4 SEROTYPE 43 (11A) <0.3 SEROTYPE 51 (7F) 0.4 SEROTYPE 54 (15B) 0.3 SEROTYPE 56 (18C) 2.5 SEROTYPE 57 (19A) 1.5 SEROTYPE 68 (9V) <0.3 SEROTYPE 70 (33F) 5.2 Serologic correlates of protection against pneumococcal disease have not been rigorously established for all patient populations. Published data and expert consensus (including WHO) suggest protection from invasive disease usually occurs at levels >or =0.3-0.50 mcg/mL for healthy children receiving pneumococcal conjugate vaccines. Higher titers may be necessary to protect from non-invasive infection (e.g., pneumonia, otitis, sinusitis). Expert opinion suggests that a cut-off of >= 1.3 mcg/mL may be a more relevant value to assess antibody responses after pneumococcal polysaccharide vaccines or for immunocompromised patients. In addition to antibody quantity, protection also depends on antibody avidity and opsonophagocytic activity. Some experts consider that post-vaccination (4-6 weeks) IgG seroconversion and/or 2- to 4-fold rise in IgG titers for >50% to 70% of vaccine serotypes demonstrates a normal post-vaccine serologic response. Persons with high initial serotype-specific titers may have less robust responses. [facility] [facility] uses a multi-analyte immunodetection (MAID) method. The method employs the Greenext flow cytometric system which measures multiple analytes simultaneously. The FDA standard reference serum 89-S is used as the calibration standard. Results are reported in mcg/mL. This assay detects all of the 23 of the serotypes in the 23-valent polysaccharide vaccine and 12 of the 13 serotypes in the 13-valent conjugate vaccine. This test was developed and its analytical performance characteristics have been determined by [facility] [facility]. It has not been cleared or approved by FDA. This assay has been validated pursuant to the CLIA regulations and used for clinical purposes. For additional information, please refer to http://education.[employer]ower .[employer]/faq/AIA086 (This link is being provided for informational/ educational purposes only.) DIPHTHERIA ANTITOXOID Reviewed date:02/17/2024 09:04:46 AM Interpretation:Normal Performing Lab:Laiyaoyao, [facility],, [address] [place], [address] Char Clemens MD,PhD,[facility] Notes/Report: NON-FASTING; NON-FASTING; NON-FASTING DIPHTHERIA ANTITOXOID 0.13 REFERENCE RANGE: 0.10 IU/mL or greater Interpretive Criteria <0.10 IU/mL Nonprotective Antibody Level > Or = 0.10 IU/mL Protective Antibody Level Antibody levels > or = 0.10 IU/mL are considered protective. After a primary series of three properly spaced diphtheria toxoid doses in adults or four doses in infants, a protective level of antitoxin (defined as > or = 0.10 IU of antitoxin/mL) is reached in more than 95% of immunized persons. This test was developed and its analytical performance characteristics have been determined by [employer] [facility]. It has not been cleared or approved by FDA. This assay has been validated pursuant to the CLIA regulations and is used for clinical purposes. H. INFLUENZAE TYPE B AB Reviewed date:02/17/2024 09:04:37 AM Interpretation:Normal Performing Lab:Laiyaoyao, [facility],, [address] [place], [phone] Char Clemens MD,PhD,[facility] Notes/Report: NON-FASTING; NON-FASTING HAEMOPHILUS INFLUENZA TYPE B ANTIBODY (IGG) 2.69 REFERENCE RANGE: > or = 1.00 mcg/mL INTERPRETIVE CRITERIA: <0.15 mcg/mL Nonprotective Antibody Level 0.15 - 0.99 mcg/mL Indeterminate for protective antibody > or = 1.00 mcg/mL Protective Antibody Level IgG antibody to polyribosylribitol phosphate (PRP), the capsular polysaccharide of Haemophilus influenzae type b, is measured in micrograms/mL (mcg/mL), based on correlations with a reference Sosa radioimmunoprecipitation assay (MARY). The exact level of antibody needed for protection from infection has not been clarified; values ranging from 0.15 mcg/mL to 1.00 mcg/mL have been reported. A four-fold increase in the PRP IgG antibody level between pre-vaccination and post-vaccination sera is considered evidence of effective immunization. TETANUS ANTITOXOID Reviewed date:02/17/2024 09:04:30 AM Interpretation:Normal Performing Lab:RASHMI, [facility],, [address] [place], [address] Char Clemens MD,PhD,[facility] Notes/Report: NON-FASTING; NON-FASTING TETANUS ANTITOXOID 0.95 REFERENCE RANGE: 0.10 IU/mL or greater Antibody levels > or = 0.10 IU/mL are considered protective. However, tetanus can still occur in some individuals with such antibody levels. These results should not be used to determine the necessity to administer antitoxin when clinically indicated. This test was developed and its analytical performance characteristics have been determined by [employer] [facility]. It has not been cleared or approved by FDA. This assay has been validated pursuant to the CLIA regulations and is used for clinical purposes. S. PNEUMONIAE IGG AB, 23 SER OTYPES, S Reviewed date:03/30/2024 02:18:14 PM Interpretation:Abnormal Performing Lab:[place], [facility], [address], [place], [address] Angel Cain M.D. Ph.D. Notes/Report: NON-FASTING FASTING:NO FASTING: NO INTERPRETATION Evaluation of the immune response following pneumococcal vaccination can be assessed by measuring serotype-specific Streptococcus pneumonia IgG antibodies. Either of the following conditions is consistent with a normal response to Streptococcus pneumonia vaccination: 1. When comparing pre and post-vaccination samples, antibody concentrations increased by at least 2-fold for either >50% of serotypes in children <6 years of age or >70% of serotypes for individuals >6 years of age. 2. In either a pre- or post-vaccination sample, antibody concentrations >=1.0 mcg/mL for either >50% of serotypes for children <6 years of age or >70% of serotypes for individuals >6 years of age. Results >=1.0 mcg/mL or those showing a >=2-fold change are consistent with an immune response, but are not necessarily sufficient to provide protection against infection. ADDITIONAL INFORMATION This test was developed and its performance characteristics determined by [facility] in a manner consistent with CLIA requirements. This test has not been cleared or approved by the U.S. Food and Drug Administration. SEROTYPE 1 (1) 0.3 >=1.0 mcg/mL SEROTYPE 2 (2) 2.4 >=1.0 mcg/mL SEROTYPE 3 (3) 0.1 >=1.0 mcg/mL SEROTYPE 4 (4) 0.4 >=1.0 mcg/mL SEROTYPE 5 (5) 0.2 >=1.0 mcg/mL SEROTYPE 8 (8) 1.2 >=1.0 mcg/mL SEROTYPE 9N (9) 10.1 >=1.0 mcg/mL SEROTYPE 12F (12) 0.3 >=1.0 mcg/mL SEROTYPE 14 (14) 5.2 >=1.0 mcg/mL SEROTYPE 17F (17) 0.6 >=1.0 mcg/mL SEROTYPE 19F (19) 2.3 >=1.0 mcg/mL SEROTYPE 20 (20) 0.8 >=1.0 mcg/mL SEROTYPE 22F (22) 1.6 >=1.0 mcg/mL SEROTYPE 23F (23) 0.6 >=1.0 mcg/mL SEROTYPE 6B (26) 0.4 >=1.0 mcg/mL SEROTYPE 10A (34) 2.6 >=1.0 mcg/mL SEROTYPE 11A (43) 0.2 >=1.0 mcg/mL SEROTYPE 7F (51) 0.7 >=1.0 mcg/mL SEROTYPE 15B (54) 11.4 >=1.0 mcg/mL SEROTYPE 18C (56) 4.7 >=1.0 mcg/mL SEROTYPE 19A (57) 4.3 >=1.0 mcg/mL SEROTYPE 9V (68) 0.2 >=1.0 mcg/mL SEROTYPE 33F (70) 9.6 >=1.0 mcg/mL S. PNEUMONIAE IGG AB, 23 SER OTYPES, S Reviewed date:05/25/2024 11:58:48 AM Interpretation:Abnormal Performing Lab:MYSal[place]ador, [facility], [address], [place], [address] Angel Cain M.D. Ph.D. Notes/Report: INTERPRETATION Evaluation of the immune response following pneumococcal vaccination can be assessed by measuring serotype-specific Streptococcus pneumonia IgG antibodies. Either of the following conditions is consistent with a normal response to Streptococcus pneumonia vaccination: 1. When comparing pre and post-vaccination samples, antibody concentrations increased by at least 2-fold for either >50% of serotypes in children <6 years of age or >70% of serotypes for individuals >6 years of age. 2. In either a pre- or post-vaccination sample, antibody concentrations >=1.0 mcg/mL for either >50% of serotypes for children <6 years of age or >70% of serotypes for individuals >6 years of age. Results >=1.0 mcg/mL or those showing a >=2-fold change are consistent with an immune response, but are not necessarily sufficient to provide protection against infection. ADDITIONAL INFORMATION This test was developed and its performance characteristics determined by [facility] in a manner consistent with CLIA requirements. This test has not been cleared or approved by the U.S. Food and Drug Administration. SEROTYPE 1 (1) 0.3 >=1.0 mcg/mL SEROTYPE 2 (2) 2.5 >=1.0 mcg/mL SEROTYPE 3 (3) 0.1 >=1.0 mcg/mL SEROTYPE 4 (4) 0.4 >=1.0 mcg/mL SEROTYPE 5 (5) 0.2 >=1.0 mcg/mL SEROTYPE 8 (8) 1.7 >=1.0 mcg/mL SEROTYPE 9N (9) 9.5 >=1.0 mcg/mL SEROTYPE 12F (12) 0.2 >=1.0 mcg/mL SEROTYPE 14 (14) 4.0 >=1.0 mcg/mL SEROTYPE 17F (17) 1.5 >=1.0 mcg/mL SEROTYPE 19F (19) 2.3 >=1.0 mcg/mL SEROTYPE 20 (20) 1.2 >=1.0 mcg/mL SEROTYPE 22F (22) 1.4 >=1.0 mcg/mL SEROTYPE 23F (23) 0.3 >=1.0 mcg/mL SEROTYPE 6B (26) 0.3 >=1.0 mcg/mL SEROTYPE 10A (34) 1.2 >=1.0 mcg/mL SEROTYPE 11A (43) 0.2 >=1.0 mcg/mL SEROTYPE 7F (51) 0.6 >=1.0 mcg/mL SEROTYPE 15B (54) 7.5 >=1.0 mcg/mL SEROTYPE 18C (56) 3.7 >=1.0 mcg/mL SEROTYPE 19A (57) 3.2 >=1.0 mcg/mL SEROTYPE 9V (68) 0.3 >=1.0 mcg/mL SEROTYPE 33F (70) 8.6 >=1.0 mcg/mL S. PNEUMONIAE IGG AB, 23 SER OTYPES, S Reviewed date:07/23/2024 02:47:57 PM Interpretation:Abnormal Performing Lab:VICTORINA, [facility], [address], [place], [address] Angel Cain M.D. Ph.D. Notes/Report: NON-FASTING INTERPRETATION Evaluation of the immune response following pneumococcal vaccination can be assessed by measuring serotype-specific Streptococcus pneumonia IgG antibodies. Either of the following conditions is consistent with a normal response to Streptococcus pneumonia vaccination: 1. When comparing pre and post-vaccination samples, antibody concentrations increased by at least 2-fold for either >50% of serotypes in children <6 years of age or >70% of serotypes for individuals >6 years of age. 2. In either a pre- or post-vaccination sample, antibody concentrations >=1.0 mcg/mL for either >50% of serotypes for children <6 years of age or >70% of serotypes for individuals >6 years of age. Results >=1.0 mcg/mL or those showing a >=2-fold change are consistent with an immune response, but are not necessarily sufficient to provide protection against infection. ADDITIONAL INFORMATION This test was developed and its performance characteristics determined by [facility] in a manner consistent with CLIA requirements. This test has not been cleared or approved by the U.S. Food and Drug Administration. SEROTYPE 1 (1) 0.3 >=1.0 mcg/mL SEROTYPE 2 (2) 2.0 >=1.0 mcg/mL SEROTYPE 3 (3) 0.1 >=1.0 mcg/mL SEROTYPE 4 (4) 0.2 >=1.0 mcg/mL SEROTYPE 5 (5) 0.1 >=1.0 mcg/mL SEROTYPE 8 (8) 1.1 >=1.0 mcg/mL SEROTYPE 9N (9) 6.6 >=1.0 mcg/mL SEROTYPE 12F (12) 0.3 >=1.0 mcg/mL SEROTYPE 14 (14) 2.4 >=1.0 mcg/mL SEROTYPE 17F (17) 1.0 >=1.0 mcg/mL SEROTYPE 19F (19) 1.3 >=1.0 mcg/mL SEROTYPE 20 (20) 0.8 >=1.0 mcg/mL SEROTYPE 22F (22) 0.9 >=1.0 mcg/mL SEROTYPE 23F (23) 0.2 >=1.0 mcg/mL SEROTYPE 6B (26) 0.2 >=1.0 mcg/mL SEROTYPE 10A (34) 0.7 >=1.0 mcg/mL SEROTYPE 11A (43) 0.2 >=1.0 mcg/mL SEROTYPE 7F (51) 0.4 >=1.0 mcg/mL SEROTYPE 15B (54) 4.1 >=1.0 mcg/mL SEROTYPE 18C (56) 3.0 >=1.0 mcg/mL SEROTYPE 19A (57) 1.7 >=1.0 mcg/mL SEROTYPE 9V (68) 0.2 >=1.0 mcg/mL SEROTYPE 33F (70) 4.1 >=1.0 mcg/mL CBC (INCLUDES DIFF/PLT) Reviewed date:08/30/2024 01:45:18 PM Interpretation:Normal Performing Lab:SKYLER, [facility], [address] [place], [address] Cirilo Sanford MD Notes/Report: NON-FASTING; NON-FASTING; NON-FASTING; NON-FASTING; NON-FAST FASTING:NO FASTING: NO WHITE BLOOD CELL COUNT 6.2 3.8-10.8 Thousand/uL RED BLOOD CELL COUNT 4.22 3.80-5.10 Million/uL HEMOGLOBIN 13.7 11.7-15.5 g/dL HEMATOCRIT 40.4 35.0-45.0 % MCV 95.7 80.0-100.0 fL MCH 32.5 27.0-33.0 pg MCHC 33.9 32.0-36.0 g/dL For adults, a slight decrease in the calculated MCHC value (in the range of 30 to 32 g/dL) is most likely not clinically significant; however, it should be interpreted with caution in correlation with other red cell parameters and the patient's clinical condition. RDW 11.9 11.0-15.0 % PLATELET COUNT 351 140-400 Thousand/uL MPV 9.9 7.5-12.5 fL ABSOLUTE NEUTROPHILS 3974 8926-5146 cells/uL ABSOLUTE LYMPHOCYTES 6021 140-6645 cells/uL ABSOLUTE MONOCYTES 521 200-950 cells/uL ABSOLUTE EOSINOPHILS 62 15-500 cells/uL ABSOLUTE BASOPHILS 50 0-200 cells/uL NEUTROPHILS 64.1 LYMPHOCYTES 25.7 MONOCYTES 8.4 EOSINOPHILS 1.0 BASOPHILS 0.8 SED RATE BY MODIFIED WESTERG ROCHELLE Reviewed date:08/30/2024 01:44:58 PM Interpretation:Normal Performing Lab:[facility], [address] [place], [address] Cirilo Sanford MD Notes/Report: NON-FASTING; NON-FASTING; NON-FASTING; NON-FASTING; NON-FAST FASTING:NO FASTING: NO SED RATE BY MODIFIED WESTERGREN 6 < OR = 20 mm/h BROCK IFA SCREEN W/REFL TO TIT ER/PATTERN,IFA(REFL) Reviewed date:08/30/2024 01:44:49 PM Interpretation:Normal Performing Lab:SKYLER [facility], [address] [place], [address] Cirilo Sanford MD Notes/Report: NON-FASTING; NON-FASTING; NON-FASTING; NON-FASTING; NON-FAST FASTING:NO FASTING: NO BROCK SCREEN, IFA NEGATIVE NEGATIVE BROCK IFA is a first line screen for detecting the presence of up to approximately 150 autoantibodies in various autoimmune diseases. A negative BROCK IFA result suggests an BROCK-associated autoimmune disease is not present at this time, but is not definitive. If there is high clinical suspicion for Sjogren's syndrome, testing for anti-SS-A/Ro antibody should be considered. Anti-Jillian-1 antibody should be considered for clinically suspected inflammatory myopathies. AC-0: Negative International Consensus on BROCK Patterns (https://doi.org/10.1515/[facility]-201 8-0052) For additional information, please refer to http://education.[employer]/faq/ECD022 (This link is being provided for informational/ educational purposes only.) IMMUNOGLOBULINS G/A/M Reviewed date:08/30/2024 01:44:39 PM Interpretation:Normal Performing Lab:SKYLER, [facility], [address], [place], [address] Cirilo Sanford MD Notes/Report: NON-FASTING; NON-FASTING; NON-FASTING; NON-FASTING; NON-FAST FASTING:NO FASTING: NO IMMUNOGLOBULIN A 228 47-310 mg/dL IMMUNOGLOBULIN G 018 562-2067 mg/dL IMMUNOGLOBULIN M 94 50-300 mg/dL VITAMIN D, 25-OH, TOTAL, IA Reviewed date:08/30/2024 01:44:26 PM Interpretation:Normal Performing Lab:Carlos, [facility], [address] [place] [address] [address], [place], [address] Jc Shafer PhD,[facility] Notes/Report: NON-FASTING; NON-FASTING; NON-FASTING VITAMIN D, 25-OH, TOTAL 43.6 >29.9 ng/mL This test was developed and its analytical performance characteristics have been determined by [facility]. It has not been cleared or approved by the U.S. Food and Drug Administration. This assay has been validated pursuant to the CLIA regulations and is used for clinical purposes. Vitamin D, 25-Hydroxy reports concentrations of two common forms, 25-OHD2 and 25-OHD3. 25-OHD3 indicates both endogenous production and supplementation. 25-OHD2 is an indicator of exogenous sources, such as diet or supplementation. Therapy is based on measurement of Total 25-OHD, with levels <20 ng/mL indicative of Vitamin D deficiency, while levels between 20 ng/mL and 30 ng/mL suggest insufficiency. Optimal levels are >=30 ng/mL. Vitamin D, 25-Hydroxy reports concentrations of two common forms, 25-OHD2 and 25-OHD3. 25-OHD3 indicates both endogenous production and supplementation. 25-OHD2 is an indicator of exogenous sources, such as diet or supplementation. Therapy is based on measurement of Total 25-OHD, with levels <20 ng/mL indicative of Vitamin D deficiency, while levels between 20 ng/mL and 30 ng/mL suggest insufficiency. Optimal levels are > or = 30 ng/mL. VITAMIN D, 25-OH, D3 43.6 This test was developed and its analytical performance characteristics have been determined by [facility]. It has not been cleared or approved by the FDA. This assay has been validated pursuant to the CLIA regulations and is used for clinical purposes. VITAMIN D, 25-OH, D2 <1.0 This test was developed and its analytical performance characteristics have been determined by [facility]. It has not been cleared or approved by the FDA. This assay has been validated pursuant to the CLIA regulations and is used for clinical purposes. H. INFLUENZAE TYPE B AB Reviewed date:08/30/2024 01:44:11 PM Interpretation:Normal Performing Lab:[facility],, [address] [place], [address] Char Clemens MD,PhD,[facility] Notes/Report: NON-FASTING; NON-FASTING; NON-FASTING HAEMOPHILUS INFLUENZA TYPE B ANTIBODY (IGG) 3.92 REFERENCE RANGE: > or = 1.00 mcg/mL INTERPRETIVE CRITERIA: <0.15 mcg/mL Nonprotective Antibody Level 0.15 - 0.99 mcg/mL Indeterminate for protective antibody > or = 1.00 mcg/mL Protective Antibody Level IgG antibody to polyribosylribitol phosphate (PRP), the capsular polysaccharide of Haemophilus influenzae type b, is measured in micrograms/mL (mcg/mL), based on correlations with a reference Sosa radioimmunoprecipitation assay (MARY). The exact level of antibody needed for protection from infection has not been clarified; values ranging from 0.15 mcg/mL to 1.00 mcg/mL have been reported. A four-fold increase in the PRP IgG antibody level between pre-vaccination and post-vaccination sera is considered evidence of effective immunization. TETANUS ANTITOXOID Reviewed date:08/30/2024 01:44:02 PM Interpretation:Normal Performing Lab:[place], [employer]/[facility],, [address] [place], [address] Char Clemens MD,PhD,ROSAURA Notes/Report: NON-FASTING TETANUS ANTITOXOID 1.39 REFERENCE RANGE: 0.10 IU/mL or greater Antibody levels > or = 0.10 IU/mL are considered protective. However, tetanus can still occur in some individuals with such antibody levels. These results should not be used to determine the necessity to administer antitoxin when clinically indicated. This test was developed and its analytical performance characteristics have been determined by [employer]. It has not been cleared or approved by FDA. This assay has been validated pursuant to the CLIA regulations and is used for clinical purposes. DIPHTHERIA ANTITOXOID Reviewed date:08/30/2024 01:43:53 PM Interpretation:Normal Performing Lab:[place], [employer]/[facility],, [address] [place], [address] Char Clemens MD,PhD,ROSAURA Notes/Report: NON-FASTING; NON-FASTING; NON-FASTING; NON-FASTING; NON-FAST FASTING:NO FASTING: NO DIPHTHERIA ANTITOXOID >2.00 REFERENCE RANGE: 0.10 IU/mL or greater Interpretive Criteria <0.10 IU/mL Nonprotective Antibody Level > Or = 0.10 IU/mL Protective Antibody Level Antibody levels > or = 0.10 IU/mL are considered protective. After a primary series of three properly spaced diphtheria toxoid doses in adults or four doses in infants, a protective level of antitoxin (defined as > or = 0.10 IU of antitoxin/mL) is reached in more than 95% of immunized persons. This test was developed and its analytical performance characteristics have been determined by [employer]. It has not been cleared or approved by FDA. This assay has been validated pursuant to the CLIA regulations and is used for clinical purposes. STREPTOCOCCUS PNEUMONIAE AB (IGG) (23 SEROTYPES) Reviewed date:08/30/2024 01:43:31 PM Interpretation:Abnormal Performing Lab:EZ, [employer]/[facility],, [address] [place], [address] Char Clemens MD,PhD,ROSAURA Notes/Report: NON-FASTING; NON-FASTING; NON-FASTING SEROTYPE 1 (1) 0.6 SEROTYPE 2 (2) 1.5 SEROTYPE 3 (3) 0.6 SEROTYPE 4 (4) 0.9 SEROTYPE 5 (5) 0.3 SEROTYPE 8 (8) 6.8 SEROTYPE 9 (9N) 5.4 SEROTYPE 12 (12F) <0.3 SEROTYPE 14 (14) 2.1 SEROTYPE 17 (17F) 1.2 SEROTYPE 19 (19F) 1.6 SEROTYPE 20 (20) 0.8 SEROTYPE 22 (22F) 2.1 SEROTYPE 23 (23F) <0.3 SEROTYPE 26 (6B) 0.6 SEROTYPE 34 (10A) 0.8 SEROTYPE 43 (11A) 0.5 SEROTYPE 51 (7F) 0.6 SEROTYPE 54 (15B) 2.2 SEROTYPE 56 (18C) 3.1 SEROTYPE 57 (19A) 4.7 SEROTYPE 68 (9V) 0.3 SEROTYPE 70 (33F) 8.3 Serologic correlates of protection against pneumococcal disease have not been rigorously established for all patient populations. Published data and expert consensus (including WHO) suggest protection from invasive disease usually occurs at levels >or =0.3-0.50 mcg/mL for healthy children receiving pneumococcal conjugate vaccines. Higher titers may be necessary to protect from non-invasive infection (e.g., pneumonia, otitis, sinusitis). Expert opinion suggests that a cut-off of >= 1.3 mcg/mL may be a more relevant value to assess antibody responses after pneumococcal polysaccharide vaccines or for immunocompromised patients. In addition to antibody quantity, protection also depends on antibody avidity and opsonophagocytic activity. Some experts consider that post-vaccination (4-6 weeks) IgG seroconversion and/or 2- to 4-fold rise in IgG titers for >50% to 70% of vaccine serotypes demonstrates a normal post-vaccine serologic response. Persons with high initial serotype-specific titers may have less robust responses. [employer] uses a multi-analyte immunodetection (MAID) method. The method employs the Greenext flow cytometric system which measures multiple analytes simultaneously. The FDA standard reference serum 89-S is used as the calibration standard. Results are reported in mcg/mL. This assay detects all of the 23 of the serotypes in the 23-valent polysaccharide vaccine and 12 of the 13 serotypes in the 13-valent conjugate vaccine. This test was developed and its analytical performance characteristics have been determined by [employer]. It has not been cleared or approved by FDA. This assay has been validated pursuant to the CLIA regulations and used for clinical purposes. For additional information, please refer to http://education.[employer]/faq/SSX303 (This link is being provided for informational/ educational purposes only.) Spirometry Reviewed date:11/24/2024 02:32:57 PM Interpretation:Normal Performing Lab: Notes/Report: Normal SpiroPreBronchodilator_FV C 3.18 SpiroPostBronchodilator_F EF25_75 0 SpiroPreBronchodilator_FE F25_75 3.4 SpiroPreBronchodilator_FE V1 2.76 SpiroPrecentPredictionPos t_FEF25_75 0 SpiroPrecentPredictionPos t_FEV1 0 SpiroPrecentPredictionPos t_FEV1_OVER_FVC 0 SpiroPrecentPredictionPos t_FVC 0 SpiroPrecentPredictionPre _FEF25_75 118.5 SpiroPrecentPredictionPre _FEV1 106.6 SpiroPrecentPredictionPre _FEV1_OVER_FVC 105.6 SpiroPrecentPredictionPre _FVC 101.6 SpiroPredicted_FEF25_75 2.87 SpiroPreBronchodilator_FE V1_OVER_FVC 86.84 SpiroPreBronchodilator_PE F 5.95 SpiroPostBronchodilator_F VC 0 SpiroPostBronchodilator_F EV1 0 SpiroPostBronchodilator_F EV1_OVER_FVC 0 SpiroPostBronchodilator_P EF 0 SpiroPredicted_FVC 3.13 SpiroPredicted_FEV1 2.59 SpiroPredicted_FEV1_OVER_ FVC 82.22 SpiroPredicted_PEF 5.81 H. INFLUENZAE TYPE B AB Reviewed date:12/01/2024 04:49:09 PM Interpretation:Normal Performing Lab:RASHMI, [facility],, [address] [place], [address] Char Clemens MD,PhD,ROSAURA Notes/Report: FASTING: UNKNOWN FASTING:UNKNOWN NON-FASTING HAEMOPHILUS INFLUENZA TYPE B ANTIBODY (IGG) 3.20 REFERENCE RANGE: > or = 1.00 mcg/mL INTERPRETIVE CRITERIA: <0.15 mcg/mL Nonprotective Antibody Level 0.15 - 0.99 mcg/mL Indeterminate for protective antibody > or = 1.00 mcg/mL Protective Antibody Level IgG antibody to polyribosylribitol phosphate (PRP), the capsular polysaccharide of Haemophilus influenzae type b, is measured in micrograms/mL (mcg/mL), based on correlations with a reference Sosa radioimmunoprecipitation assay (MARY). The exact level of antibody needed for protection from infection has not been clarified; values ranging from 0.15 mcg/mL to 1.00 mcg/mL have been reported. A four-fold increase in the PRP IgG antibody level between pre-vaccination and post-vaccination sera is considered evidence of effective immunization. STREPTOCOCCUS PNEUMONIAE AB (IGG) (23 SEROTYPES) Reviewed date:12/07/2024 09:09:46 AM Interpretation:Abnormal Performing Lab:EZ, [facility],, [address] [place], [address] Char Clemens MD,PhD,ROSAURA Notes/Report: NON-FASTING FASTING:UNKNOWN FASTING: UNKNOWN SEROTYPE 1 (1) 0.4 SEROTYPE 2 (2) 1.3 SEROTYPE 3 (3) 0.4 SEROTYPE 4 (4) 0.7 SEROTYPE 5 (5) <0.3 SEROTYPE 8 (8) 6.9 SEROTYPE 9 (9N) 3.4 SEROTYPE 12 (12F) <0.3 SEROTYPE 14 (14) 1.7 SEROTYPE 17 (17F) 0.8 SEROTYPE 19 (19F) 2.0 SEROTYPE 20 (20) 0.4 SEROTYPE 22 (22F) 1.8 SEROTYPE 23 (23F) <0.3 SEROTYPE 26 (6B) 0.6 SEROTYPE 34 (10A) 0.7 SEROTYPE 43 (11A) 0.3 SEROTYPE 51 (7F) 0.3 SEROTYPE 54 (15B) 1.5 SEROTYPE 56 (18C) 2.8 SEROTYPE 57 (19A) 3.5 SEROTYPE 68 (9V) <0.3 SEROTYPE 70 (33F) 6.9 Serologic correlates of protection against pneumococcal disease have not been rigorously established for all patient populations. Published data and expert consensus (including WHO) suggest protection from invasive disease usually occurs at levels >or =0.3-0.50 mcg/mL for healthy children receiving pneumococcal conjugate vaccines. Higher titers may be necessary to protect from non-invasive infection (e.g., pneumonia, otitis, sinusitis). Expert opinion suggests that a cut-off of >= 1.3 mcg/mL may be a more relevant value to assess antibody responses after pneumococcal polysaccharide vaccines or for immunocompromised patients. In addition to antibody quantity, protection also depends on antibody avidity and opsonophagocytic activity. Some experts consider that post-vaccination (4-6 weeks) IgG seroconversion and/or 2- to 4-fold rise in IgG titers for >50% to 70% of vaccine serotypes demonstrates a normal post-vaccine serologic response. Persons with high initial serotype-specific titers may have less robust responses. [employer] uses a multi-analyte immunodetection (MAID) method. The method employs the Greenext flow cytometric system which measures multiple analytes simultaneously. The FDA standard reference serum 89-S is used as the calibration standard. Results are reported in mcg/mL. This assay detects all of the 23 of the serotypes in the 23-valent polysaccharide vaccine and 12 of the 13 serotypes in the 13-valent conjugate vaccine. This test was developed and its analytical performance characteristics have been determined by [employer]. It has not been cleared or approved by FDA. This assay has been validated pursuant to the CLIA regulations and used for clinical purposes. For additional information, please refer to http://education.[employer] .[employer]/faq/YUD198 (This link is being provided for informational/ educational purposes only.) DIPHTHERIA AND TETANUS ANTIT OXOIDS Reviewed date:12/02/2024 07:36:13 AM Interpretation:Normal Performing Lab:RASHMI, [facility],, [address] [facility], [place], [address] Char Clemens MD,PhD,ROSAURA Notes/Report: NON-FASTING FASTING:UNKNOWN FASTING: UNKNOWN DIPHTHERIA ANTITOXOID 1.04 REFERENCE RANGE: 0.10 IU/mL or greater Interpretive Criteria <0.10 IU/mL Nonprotective Antibody Level > Or = 0.10 IU/mL Protective Antibody Level Antibody levels > or = 0.10 IU/mL are considered protective. After a primary series of three properly spaced diphtheria toxoid doses in adults or four doses in infants, a protective level of antitoxin (defined as > or = 0.10 IU of antitoxin/mL) is reached in more than 95% of immunized persons. This test was developed and its analytical performance characteristics have been determined by [employer]. It has not been cleared or approved by FDA. This assay has been validated pursuant to the CLIA regulations and is used for clinical purposes. TETANUS ANTITOXOID 0.69 REFERENCE RANGE: 0.10 IU/mL or greater Antibody levels > or = 0.10 IU/mL are considered protective. However, tetanus can still occur in some individuals with such antibody levels. These results should not be used to determine the necessity to administer antitoxin when clinically indicated. This test was developed and its analytical performance characteristics have been determined by [employer]. It has not been cleared or approved by FDA. This assay has been validated pursuant to the CLIA regulations and is used for clinical purposes. Reason For Referral No Information Medications Medication SIG (Take, Route, Frequency, Duration) Notes Start Date End Date Status Nasal Washes N/A as directed intranasally Active Ipratropium Lyndora 0.06 % 2 spray(s) intranasally 3 times a day for 30 days Not-Taking amLODIPine Besylate 2.5 MG 1 tab(s) orally once a day for 30 day(s) 05/30/2021 Active SIT (CLUSTER) VARIABLE PER SCHEDULE SC PER SCHEDULE for TO BE DETERMINED *Please review for potential replacement for e-prescription and drug interaction check* Not-Taking AZELASTINE HYDROCHLORIDE NASAL 137 mcg/inh 2 spray(s) intranasally 2 times a day for 30 days Active Dicyclomine HCl 10 MG 2 cap(s) orally 4 times a day PRN Not-Taking TRIAMCINOLONE ACETONIDE TOPICAL 0.1% 1 tomas applied topically twice a day after shots for 7 days Active Symbicort 160-4.5 MCG/ACT 2 puff(s) inhaled 2 times a day for 30 days Not-Taking V[employer]AM[employer] as directed Active OLOPATADINE NASAL 665 MCG/INH 2 SPRAY(S) INTRANASALLY 2 TIMES A DAY for 30 DAYS *Please review for potential replacement for e-prescription and drug interaction check* Not-Taking PROAIR HFA CFC free 90 mcg/inh 2 puff(s) inhaled 4 times a day Active Trelegy Ellipta 100 MCG-62.5 MCG-25 MCG/INH 1 PUFF(S) INHALED ONCE A DAY for 30 DAYS *Please review and pick correct strength-formula tion from Siklu options. If intended option is not shown, discontinue and re-order from Quick Search* 12/17/2023 Not-Taking Paxlovid (300/100) 20 x 150 MG & 10 x 100MG 3 tablets Orally Twice a day for 5 days 06/01/2024 Not-Taking Pataday 0.2 % 1 gtt in each affected eye once a day Not-Taking PATADAY 0.2% 1 gtt in each affected eye once a day Active VANICREAM MOISTURIZING CREAM N/A as necessary Apply to external surfaces as often as needed to face, hands, feet or body For daily use by the entire family for 30 day(s) Active Lo Loestrin Fe 1 MG-10 MCG / 10 MCG 1 tab(s) orally once a day Active Famotidine 40 mg 1 tab(s) orally 30 mins prior to SCIT for 30 days Active Atorvastatin Calcium 10 MG 1 tab(s) orally once a day Active Azelastine HCl 137 MCG/SPRAY 2 spray(s) intranasally 2 times a day for 30 day(s) 11/15/2021 Active Symbicort 160-4.5 MCG/ACT INHALE 2 PUFFS BY MOUTH TWICE DAILY for 30 Active DICYCLOMINE 10 mg 2 cap(s) orally 4 times a day PRN Active Flonase Allergy Relief 50 MCG/ACT 1 spray(s) intranasally twice a day for 30 days Active ZYRTEC 10 mg 2 tab(s) orally Qday, and prior to SCIT dosing Active Auvi-Q 0.3 MG/0.3ML as directed intramuscularly once for 30 day(s) Active ATORVASTATIN 10 mg 1 tab(s) orally once a day Active SUDAFED PE PRESSURE PLUS PAIN 325 MG-5 MG 2 TAB(S) ORALLY EVERY 4 HOURS *Please review for potential replacement for e-prescription and drug interaction check* Active FLUOXETINE 20 mg 1 cap(s) orally once a day Active ZyrTEC Allergy 10 MG 2 tab(s) orally Qday, and prior to SCIT dosing Active D3 2000 INTL UNITS DIRECTED ORALLY ONCE A DAY for 30 DAY(S) *Please review and pick correct strength-formula tion from Siklu options. If intended option is not shown, discontinue and re-order from Quick Search* Active LO LOESTRIN FE with iron biphasic 10 mcg-1 mg 1 tab(s) orally once a day Active Singulair 10 MG 1 tab(s) orally once a day for 30 day(s) Active FLUoxetine HCl 20 MG 1 cap(s) orally once a day Active SYMBICORT 160 mcg-4.5 mcg/inh 2 puff(s) inhaled 2 times a day for 30 days Active SIT (TRADITIONAL) variable per schedule SC per schedule for to be determined Active SIT (TRADITIONAL) VARIABLE PER SCHEDULE SC PER SCHEDULE for TO BE DETERMINED *Please review for potential replacement for e-prescription and drug interaction check* Not-Taking MONTELUKAST SODIUM 10 mg 1 tab(s) orally once a day for 30 day(s) Active FLONASE 50 mcg/inh 1 spray(s) intranasally twice a day for 30 days Active Mupirocin 2 % 1 application Externally Twice a day for 5 day(s) 11/24/2024 Active AUVI -Q 0.3 mg as directed intramuscularly once for 30 day(s) Active Montelukast Sodium 10 MG TAKE 1 TABLET BY MOUTH DAILY for 30 Not-Taking Immunizations Vaccine Route Administration Date Status Comme nts Covid 19 (Pfizer) Unknown 11/10/2020 Administered Covid 19 (Pfizer) Unknown 12/08/2020 Administered Flucelvax Unknown 08/17/2022 Administered Influenza Unknown 07/20/2014 Administered Influenza Unknown 07/11/2015 Administered NOC Fluzone Quadrivalent Unknown 07/11/2020 Administere d NOC Influenza-Afluria IM Intramuscular 08/16/2011 Administ ered NOC Influenza-Fluzone Unknown 07/14/2021 Administered NOC PedvaxHIB IM Intramuscular 11/14/2020 Administered NOC Pneumovax 23 IM Intramuscular 07/05/2016 Administered NOC Pneumovax 23 IM Intramuscular 11/14/2020 Administered NOC Pneumovax 23 IM Intramuscular 04/14/2024 Administered NOC Pneumovax 23 Unknown 04/14/2024 Administered NOC Prevnar 20 IM Intramuscular 02/18/2024 Administered Pneumovax 23 IM Intramuscular 06/09/2024 Administered Social History Tobacco Use: Social History Observation Description Date Details (start date - stop date) Never Smoker NA - NA Tobacco Control (Standard) Question Answer Notes Tobacco use: Nonsmoker AUDIT-C (Standard) Question Answer Notes Did you have a drink contain ing alcohol in the past year? Yes How often did you have a dri nk containing alcohol in the past year? Monthly or less (1 point) How many drinks did you have on a typical day when you were drinking in the past year? 1 or 2 drinks (0 point) How often did you have six o r more drinks on one occasion in the past year? 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 Problem Allergic rhinitis (02951700) Other allergic rhinitis (J30.89) Active confirmed Problem Chronic sinusitis (31989636) Chronic sinusitis, unspecified (J32.9) Active confirmed Problem Inflammatory dermatosis (007069102) Other specified dermatitis (L30.8) Active confirmed Problem Cough (40023953) Cough (R05) Active confirmed Problem Malaise (529829851) Other malais e (R53.81) Active confirmed Problem Chronic fatigue syndrome (disorder) (43823175) Chronic fatigue, unspecified (R53.82) Active confirmed Problem Fatigue (31101369) Other fatigue (R53.83) Active confirmed Problem Lymphadenopathy (67875896) Enlarged lymph nodes, unspecified (R59.9) Active confirmed Problem Abnormal weight gain (365829709) Abnormal weight gain (R63.5) Active confirmed Problem Allergic rhinitis caused by pollen (disorder) (07099454) Allergic rhinitis due to pollen (J30.1) Active confirmed Problem Allergic rhinitis caused by animal hair and dander (278079245298796) Allergic rhinitis due to animal (cat) (dog) hair and dander (J30.81) Active confirmed Problem Chronic allergic conjunctivitis (58199239) Other chronic allergic conjunctivitis (H10.45) Active confirmed Problem Eruption of skin (637355295) Rash and other nonspecific skin eruption (R21) Active confirmed Problem Chronic sinusitis (42385724) Other chronic sinusitis (J32.8) Active confirmed Problem Essential hypertensi on (79307769) Essential (primary) hypertension (I10) Active confirmed Problem Pure hypercholesterolemia (177802884) Pure hypercholesterolemia , unspecified (E78.00) Active confirmed Problem COVID-19 (838787649) COVID-19 (U07.1) Active co nfirmed Problem Chronic cough (08765712) Chronic cough (R05.3) Active confirmed Vital Signs Respiratory Rate 18 /min 12/01/2024 Oximetry 98 % 12/01/2024 Blood pressure diastolic 81 mm Hg 12/01/2024 Height 62.4 in 01/20/2025 Blood pressure systolic 126 mm Hg 12/01/2024 Weight 136.4 lbs 01/20/2025 BMI 24.63 kg/m2 01/20/2025 Encounters Encounter Location Date Provider Diagnosis [facility] ([address]) [address]22 [place] [address]U[place] [address] [place] [address] 01/29/2024 Moses Corley Chronic fatigue, uns pecified R53.82 ; Other fatigue R53.83 ; Abnormal weight gain R63.5 and Other malaise R53.81 [facility] ([address]) [address] [place] [address] [address] [place] [address] 02/05/2024 Moses Corley Chronic fatigue, uns pecified R53.82 ; Other fatigue R53.83 ; Abnormal weight gain R63.5 and Other malaise R53.81 [facility] ([address]) [address]22 [place] [address]A [address] [place] [address] 02/12/2024 Moses Corley Chronic fatigue, uns pecified R53.82 ; Other fatigue R53.83 ; Abnormal weight gain R63.5 and Other malaise R53.81 [facility] ([address]) [address] [place] [address] 02/19/2024 Mosesneftali Corley Chronic fatigue, uns pecified R53.82 ; Other fatigue R53.83 ; Abnormal weight gain R63.5 and Other malaise R53.81 [facility] ([address]) [address] [place] [address] 02/26/2024 Moses Corley Chronic fatigue, uns pecified R53.82 ; Other fatigue R53.83 ; Abnormal weight gain R63.5 and Other malaise R53.[address] [address] 03/21/2024 Provider MERLY-Ciara [facility] ([address]) [address] [place] [address] 12/30/2024 Moses Corley Chronic fatigue, uns pecified R53.82 ; Other fatigue R53.83 ; Abnormal weight gain R63.5 and Other malaise R53.81 [address] [place] [address] 12/30/2024 Moses Corley [facility] ([address]) [address] [place] [address] 01/06/2025 Moses Corley Chronic fatigue, uns pecified R53.82 ; Other fatigue R53.83 ; Abnormal weight gain R63.5 and Other malaise R53.81 [facility] ([address]) [address] [place] [address] 01/12/2025 Mosesneftali Corley Chronic fatigue, uns pecified R53.82 ; Other fatigue R53.83 ; Abnormal weight gain R63.5 and Other malaise R53.81 [facility] ([address]) [address] [place] [address] 01/20/2025 Mosesneftali Corley Chronic fatigue, uns pecified R53.82 ; Other fatigue R53.83 ; Abnormal weight gain R63.5 and Other malaise R53.[address] [place] [address] 02/03/2024 Adriana Young Chronic cough R05.3 ; Allergic rhinitis due to pollen J30.1 ; Allergic rhinitis due to animal (cat) (dog) hair and dander J30.81 ; Other allergic rhinitis J30.89 ; Other chronic allergic conjunctivitis H10.45 ; Chronic sinusitis, unspecified J32.9 ; Rash and other nonspecific skin eruption R21 and Vitamin D deficiency, unspecified E55.[address] [address] 02/18/2024 Moses Corley Encounter for immuni zation Z23 and Encounter for antibody response examination Z01.[address] [place] [address] 03/03/2024 Moses Corley Allergic rhinitis du e to pollen J30.1 ; Other allergic rhinitis J30.89 ; Allergic rhinitis due to animal (cat) (dog) hair and dander J30.81 and Other chronic allergic conjunctivitis H10.45 [facility] ([address]) [address] [place] [address] 03/04/2024 Moses Corley Chronic fatigue, uns pecified R53.82 ; Other fatigue R53.83 ; Abnormal weight gain R63.5 and Other malaise R53.81 [facility] ([address]) [address] [place] [address] 03/11/2024 Moses Corley Chronic fatigue, uns pecified R53.82 ; Other fatigue R53.83 ; Abnormal weight gain R63.5 and Other malaise R53.81 [facility] ([address]) [address] [place] [address] 03/17/2024 Moses Corley Chronic fatigue, uns pecified R53.82 ; Other fatigue R53.83 ; Abnormal weight gain R63.5 and Other malaise R53.81 [facility] ([address]) [address] [place] [address] 03/25/2024 Moses Corley Chronic fatigue, uns pecified R53.82 ; Other fatigue R53.83 ; Abnormal weight gain R63.5 and Other malaise R53.81 [facility] ([address]) [address] [place] [address] [place] [address] 04/01/2024 Moses Corley Chronic fatigue, uns pecified R53.82 ; Other fatigue R53.83 ; Abnormal weight gain R63.5 and Other malaise R53.81 [facility] [address] [place] [address] 04/02/2024 Moses Corley Allergic rhinitis du e to pollen J30.1 ; Other allergic rhinitis J30.89 ; Allergic rhinitis due to animal (cat) (dog) hair and dander J30.81 and Other chronic allergic conjunctivitis H10.[address] [place] [address] 04/14/2024 Moses Corley Encounter for immuni zation Z23 ; Encounter for antibody response examination Z01.84 and Other chronic sinusitis J32.8 [facility] [facility] ([address]) 2022 ARGELIA BRIZUELA [address] [place] [id number] 04/15/2024 Moses Corley Chronic fatigue, uns pecified R53.82 ; Other fatigue R53.83 ; Abnormal weight gain R63.5 and Other malaise R53.81 [address] [place] [address] 05/05/2024 Moses Barney Allergic rhinitis du e to pollen J30.1 ; Other allergic rhinitis J30.89 ; Allergic rhinitis due to animal (cat) (dog) hair and dander J30.81 and Other chronic allergic conjunctivitis H10.45 [facility] ([address]) 2022 ARGELIA BRIZUELA [address] [place] [phone] 05/06/2024 Mosesneftali Corley Chronic fatigue, uns pecified R53.82 ; Other fatigue R53.83 ; Abnormal weight gain R63.5 and Other malaise R53.81 [facility] [address] [place] [address] 06/01/2024 Adriana Young Chronic sinusitis, unspecified J32.9 ; COVID-19 U07.1 ; Chronic cough R05.3 ; Allergic rhinitis due to pollen J30.1 ; Allergic rhinitis due to animal (cat) (dog) hair and dander J30.81 ; Other allergic rhinitis J30.89 ; Other chronic allergic conjunctivitis H10.45 ; Rash and other nonspecific skin eruption R21 and Vitamin D deficiency, unspecified E55.9 [facility] ([address]) [address] [address] 06/03/2024 Moses Corley Chronic fatigue, uns pecified R53.82 ; Other fatigue R53.83 ; Abnormal weight gain R63.5 and Other malaise R53.81 [facility] [address] [place] [address] 06/09/2024 Moses Corley Encounter for immuni zation Z23 and Encounter for antibody response examination Z01.84 [facility] [address] [place] [address] 06/10/2024 Moses Corley Allergic rhinitis du e to pollen J30.1 ; Other allergic rhinitis J30.89 ; Allergic rhinitis due to animal (cat) (dog) hair and dander J30.81 and Other chronic allergic conjunctivitis H10.45 [facility] [address] [place] [address] 07/13/2024 Moses Corley Allergic rhinitis du e to pollen J30.1 ; Other allergic rhinitis J30.89 ; Allergic rhinitis due to animal (cat) (dog) hair and dander J30.81 and Other chronic allergic conjunctivitis H10.45 [facility] [address] [place] [address] 08/19/2024 Adriana Young Chronic sinusitis, unspecified J32.9 ; Enlarged lymph nodes, unspecified R59.9 ; 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 ; Chronic cough R05.3 ; Allergic rhinitis due to pollen J30.1 ; Allergic rhinitis due to animal (cat) (dog) hair and dander J30.81 ; Other allergic rhinitis J30.89 ; Other chronic allergic conjunctivitis H10.45 ; Rash and other nonspecific skin eruption R21 and Vitamin D deficiency, unspecified E55.9 [facility] [address] [place] [address] 08/25/2024 Moses Corley Allergic rhinitis du e to pollen J30.1 ; Other allergic rhinitis J30.89 ; Allergic rhinitis due to animal (cat) (dog) hair and dander J30.81 and Other chronic allergic conjunctivitis H10.45 [facility] [place] [address] [place] [address] 09/01/2024 Moses Corley Allergic rhinitis du e to pollen J30.1 ; Other allergic rhinitis J30.89 ; Allergic rhinitis due to animal (cat) (dog) hair and dander J30.81 and Other chronic allergic conjunctivitis H10.45 [facility] [address] [place] [address] 10/05/2024 Moses Corley Allergic rhinitis du e to pollen J30.1 ; Other allergic rhinitis J30.89 ; Allergic rhinitis due to animal (cat) (dog) hair and dander J30.81 and Other chronic allergic conjunctivitis H10.45 [facility] [place] [address] [place] [address] 11/17/2024 Moses Corley Allergic rhinitis du e to pollen J30.1 ; Other allergic rhinitis J30.89 ; Allergic rhinitis due to animal (cat) (dog) hair and dander J30.81 and Other chronic allergic conjunctivitis H10.45 [facility] [place] [address] [place] [address] 11/24/2024 Adriana Young Chronic sinusitis, unspecified J32.9 ; Other specified disorders of nose and nasal sinuses J34.89 ; Enlarged lymph nodes, unspecified R59.9 ; 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 ; Chronic cough R05.3 ; Allergic rhinitis due to pollen J30.1 ; Allergic rhinitis due to animal (cat) (dog) hair and dander J30.81 ; Other allergic rhinitis J30.89 ; Other chronic allergic conjunctivitis H10.45 ; Rash and other nonspecific skin eruption R21 and Vitamin D deficiency, unspecified E55.9 [facility] [place] [address] [place] [address] 12/01/2024 Adriana Young Chronic sinusitis, unspecified J32.9 ; Other specified disorders of nose and nasal sinuses J34.89 ; Enlarged lymph nodes, unspecified R59.9 ; 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 ; Chronic cough R05.3 ; Allergic rhinitis due to pollen J30.1 ; Allergic rhinitis due to animal (cat) (dog) hair and dander J30.81 ; Other allergic rhinitis J30.89 ; Other chronic allergic conjunctivitis H10.45 ; Rash and other nonspecific skin eruption R21 and Vitamin D deficiency, unspecified E55.9 [facility] [place] [address] [place] [address] 12/15/2024 Moses Corley Allergic rhinitis du e to pollen J30.1 ; Other allergic rhinitis J30.89 ; Allergic rhinitis due to animal (cat) (dog) hair and dander J30.81 and Other chronic allergic conjunctivitis H10.45 [facility] ([address]) 2022 ARGELIA MOS[address]ERA [address] [place] [address] 01/29/2024 Adriana Young Chronic fatigue, uns pecified R53.82 ; Other fatigue R53.83 ; Other malaise R53.81 and Abnormal weight gain R63.5 [facility] [place] [address] [place] [address] 02/17/2024 Adriana Young Chronic sinusitis, unspecified J32.9 [facility] [place] [address] [facility] [place] [address] 03/30/2024 Adriana Young [facility] [place] [address] [facility] [place] [address] 05/18/2024 Adriana Young Chronic sinusitis, unspecified J32.9 [facility] [place] [address] [place] [address] 05/25/2024 Adriana Young Chronic sinusitis, unspecified J32.9 [facility] [place] [address] [place] [address] 06/01/2024 Adriana Pisano [facility] [place] [address] [facility] [place] [address] 06/01/2024 Adriana Pisano [facility] [place] [address] [facility] [place] [address] 07/23/2024 Adriana Pisano [facility] [place] [address] [place] [place] [address] 08/30/2024 Adriana Pisano [facility] [place] [address] [facility] [place] [address] 06/11/2024 Adriana Pisano [facility] [place] [address] [facility] [place] [address] 07/02/2024 Adriana Pisano [facility] [place] [address] [facility] [place] [address] 07/06/2024 Adriana Pisano [facility] [place] [address] [place] [place] [address] 07/23/2024 Adriana Pisano [facility] [place] [address] [facility] [place] [address] 08/03/2024 Adriana Pisano [facility] [place] [address] [facility] [place] [address] 11/29/2024 Adriana [facility] [place] [address] [facility] [place] [address] 11/30/2024 Adriana Pisano [facility] [place] [address] [facility] [place] [address] 12/04/2024 Adriana Pisano [facility] [place] [address] [facility] [place] [address] 12/07/2024 Adriana Pisano [facility] [place] [address] [place] [place] [address] 12/15/2024 Adriana Pisano [facility] [place] [address] [facility] [place] [address] 12/17/2024 Adriana Pisano Assessments Encounter Date Diagnosis (ICD Code) Assessment Notes Treatment Notes Treatment Clinical Notes Section Notes 01/29/2024 Chronic fatigue, unspecified (ICD-10 - R53.82) 01/29/2024 Other fatigue (ICD-1 0 - R53.83) 01/29/2024 Abnormal weight gain (ICD-10 - R63.5) 01/29/2024 Chronic fatigue, unspecified (ICD-10 - R53.82) 01/29/2024 Other fatigue (ICD-1 0 - R53.83) 02/03/2024 Allergic rhinitis du e to pollen (ICD-10 - J30.1) Lovely presents today for urgent visit due to lingering symptoms from a URI, otherwise has been doing well since sinus surgery with Dr. Yañez in 2021. - Continue SCIT, Lovely did not recieve dosing today. - Continue triple pre-med, will send out TAC to use after shots - Continue daily meds as above. 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 She is now taking QD. -Stepped up to Trelegy last visit with some improvement while she was sick - Continue AGUSTINA per AAP, back to using Symbicort 02/05/2024 Chronic fatigue, unspecified (ICD-10 - R53.82) 02/05/2024 Other fatigue (ICD-1 0 - R53.83) 02/05/2024 Abnormal weight gain (ICD-10 - R63.5) 02/12/2024 Chronic fatigue, unspecified (ICD-10 - R53.82) 02/12/2024 Other fatigue (ICD-1 0 - R53.83) 02/12/2024 Abnormal weight gain (ICD-10 - R63.5) 02/17/2024 Chronic sinusitis, unspecified (ICD-10 - J32.9) 02/18/2024 Encounter for immunization (ICD-10 - Z23) 02/18/2024 Encounter for antibo dy response examination (ICD-10 - Z01.84) 02/19/2024 Chronic fatigue, unspecified (ICD-10 - R53.82) 02/19/2024 Other fatigue (ICD-1 0 - R53.83) 02/19/2024 Abnormal weight gain (ICD-10 - R63.5) 02/26/2024 Chronic fatigue, unspecified (ICD-10 - R53.82) 02/26/2024 Other fatigue (ICD-1 0 - R53.83) 02/26/2024 Abnormal weight gain (ICD-10 - R63.5) 03/03/2024 Allergic rhinitis du e to pollen (ICD-10 - J30.1) 03/04/2024 Chronic fatigue, unspecified (ICD-10 - R53.82) 03/04/2024 Other fatigue (ICD-1 0 - R53.83) 03/04/2024 Abnormal weight gain (ICD-10 - R63.5) 03/11/2024 Chronic fatigue, unspecified (ICD-10 - R53.82) 03/11/2024 Other fatigue (ICD-1 0 - R53.83) 03/11/2024 Abnormal weight gain (ICD-10 - R63.5) 03/17/2024 Chronic fatigue, unspecified (ICD-10 - R53.82) 03/17/2024 Other fatigue (ICD-1 0 - R53.83) 03/17/2024 Abnormal weight gain (ICD-10 - R63.5) 03/25/2024 Chronic fatigue, unspecified (ICD-10 - R53.82) 03/25/2024 Other fatigue (ICD-1 0 - R53.83) 03/25/2024 Abnormal weight gain (ICD-10 - R63.5) 04/01/2024 Chronic fatigue, unspecified (ICD-10 - R53.82) 04/01/2024 Other fatigue (ICD-1 0 - R53.83) 04/01/2024 Abnormal weight gain (ICD-10 - R63.5) 04/02/2024 Allergic rhinitis du e to pollen (ICD-10 - J30.1) 04/14/2024 Encounter for immunization (ICD-10 - Z23) 04/15/2024 Chronic fatigue, unspecified (ICD-10 - R53.82) 04/15/2024 Other fatigue (ICD-1 0 - R53.83) 04/15/2024 Abnormal weight gain (ICD-10 - R63.5) 04/14/2024 Encounter for antibo dy response examination (ICD-10 - Z01.84) 05/05/2024 Allergic rhinitis du e to pollen (ICD-10 - J30.1) 05/06/2024 Chronic fatigue, unspecified (ICD-10 - R53.82) 05/06/2024 Other fatigue (ICD-1 0 - R53.83) 05/06/2024 Abnormal weight gain (ICD-10 - R63.5) 05/18/2024 Chronic sinusitis, unspecified (ICD-10 - J32.9) 05/25/2024 Chronic sinusitis, unspecified (ICD-10 - J32.9) 06/01/2024 Chronic sinusitis, unspecified (ICD-10 - J32.9) - Recurrent sinusitis when off SCIT. Given her frequency of infection, we previously checked a modifiedin 2020 resulting in Pneumococcal titers increased from 07/29 to (~73%). -Updated labs in 2023 showed normal immunoglobulins but inadequate HIb and Pneumococcal protections. -She recevied boosters: Prevnar in February 2024 resulting in an increase from 8 of 23 protected to 10 of 23 protected. Then given Pneumovax in April 2023 resulting in an increase to 11 of 23. She received Hib in February 2024 and now has adequate protection -Recommend repeating Pneumovax and rechecking labs in 4-6 weeks.Wait until she is over COVID 06/01/2024 COVID-19 (ICD-10 - U07.1) As she has no liver or kidney history, recommend trial of Paxlovid as she is less than 5 days of symptoms.Discussed risk of hypersensitivity reaction and common side effects include change in taste and GI symptoms 06/03/2024 Chronic fatigue, unspecified (ICD-10 - R53.82) 06/03/2024 Other fatigue (ICD-1 0 - R53.83) 06/03/2024 Abnormal weight gain (ICD-10 - R63.5) 06/09/2024 Encounter for immunization (ICD-10 - Z23) 06/10/2024 Allergic rhinitis du e to pollen (ICD-10 - J30.1) 07/13/2024 Allergic rhinitis du e to pollen (ICD-10 - J30.1) 08/19/2024 Chronic sinusitis, unspecified (ICD-10 - J32.9) Given her frequency of infection, we previously checked a modified in 2020 resulting in Pneumococcal titers increased from 07/29 to (~73%). -Updated labs in 2023 were checked as she is having frequent sinus infections again, which showed normal immunoglobulins but inadequate HIb and Pneumococcal protections. -She recevied boosters: Prevnar in February 2024 resulting in an increase from 8 of 23 protected to 10 of 23 protected. Then given Pneumovax in April resulting in an increase to 11 of 23. Then received Pneumovax in June 2024, now with 8 of 23. 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 Will recheck labs and assess her immune system now. Given her frequency of sinus infections she is interested in replacement therapy. -She also received Hib in February 2024 and now has adequate protection- await recheck Will discuss labs by phone and possibly plan on starting immune replacement Closely monitor infection -Recommend starting Budesonide rinses encouraged by ENT - has yet to start -Return in 3 months 08/19/2024 Enlarged lymph nodes , unspecified (ICD-10 - R59.9) On exam I do not observe any gland swelling. Her trapezius is definitley inflammed - slated to have massage tonight -ENT has seen/felt her gland swelling - will closely observe. Await labs and consider CT -likely reactive 08/25/2024 Allergic rhinitis du e to pollen (ICD-10 - J30.1) 09/01/2024 Allergic rhinitis du e to pollen (ICD-10 - J30.1) 10/05/2024 Allergic rhinitis du e to pollen (ICD-10 - J30.1) 11/17/2024 Allergic rhinitis du e to pollen (ICD-10 - J30.1) 11/24/2024 Chronic sinusitis, unspecified (ICD-10 - J32.9) Given her frequency of infection, we previously checked a modified in 2020 resulting in Pneumococcal titers increased from 10/ to 17/ (~73%). -Updated labs in 2023 were checked as she is having frequent sinus infections again, which showed normal immunoglobulins but inadequate HIb and Pneumococcal protections. -She recevied boosters: Prevnar in February 2024 resulting in an increase from 8 of 23 protected to 10 of 23 protected. Then given Pneumovax in April resulting in an increase to 11 of 23. Then received Pneumovax in June 2024, now with 8 of 23. 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 Her last check in 08/2024 showed normal labs sans Pneumococcal protection which fell to 10 of 23.Will recheck labs and assess her immune system now. Given her frequency of sinus infections she is interested in replacement therapy. -She also received Hib in February 2024 and now has adequate protection. Still normal in 08/2024 Will discuss labs by phone and possibly plan on starting immune replacement Closely monitor infection -Recommend restarting sinus rinses -Return in 3 months 11/24/2024 Other specified diso rders of nose and nasal sinuses (ICD-10 - J34.89) Recently treated nasal sore with mupirocin x 1.5 weeks. on exam still very dry, add AYR nasal gel and sinus rinses. Also just started humdifier in home 12/01/2024 Chronic sinusitis, unspecified (ICD-10 - J32.9) Given her frequency of infection, we previously checked a modified in 2020 resulting in Pneumococcal titers increased from 10/23 to 17/23 (~73%). -Updated labs in 2023 were checked as she is having frequent sinus infections again, which showed normal immunoglobulins but inadequate HIb and Pneumococcal protections. She recevied boosters: Prevnar in February 2024 resulting in an increase from 8 of 23 protected to 10 of 23 protected. Then given Pneumovax in April resulting in an increase to 11 of 23. Then received Pneumovax in June 2024, now with 8 of 23. She likely has mild Specific Antibody Deficiency. Her last check in 08/2024 showed normal labs sans Pneumococcal protection which fell to 10 of 23.Will recheck labs and assess her immune system now. Conside prophylactic abx. Toshia sent her to ENT to get their input on intranasal sinus rinses and antibiotics but they feel anatomically everything is normal, with CT not showing any chronic sinus disease. -She also received Hib in February 2024 and now has adequate protection. Still normal in 08/2024 Will discuss labs by phone and possibly plan on starting immune replacement but Im not sure if she will qualify -Work letter reviewing workplace trainer and assessor recommendations provided today -Recommend restarting sinus rinses -Return in 3 months 12/01/2024 Other specified diso rders of nose and nasal sinuses (ICD-10 - J34.89) Recently treated nasal sore with mupirocin x 1.5 weeks. on exam still very dry, add AYR nasal gel and sinus rinses. Also just started humdifier in home 12/15/2024 Allergic rhinitis du e to pollen (ICD-10 - J30.1) 12/30/2024 Chronic fatigue, unspecified (ICD-10 - R53.82) 12/30/2024 Other fatigue (ICD-1 0 - R53.83) 12/30/2024 Abnormal weight gain (ICD-10 - R63.5) 01/06/2025 Chronic fatigue, unspecified (ICD-10 - R53.82) 01/06/2025 Other fatigue (ICD-1 0 - R53.83) 01/06/2025 Abnormal weight gain (ICD-10 - R63.5) 01/12/2025 Chronic fatigue, unspecified (ICD-10 - R53.82) 01/12/2025 Other fatigue (ICD-1 0 - R53.83) 01/12/2025 Abnormal weight gain (ICD-10 - R63.5) 01/20/2025 Chronic fatigue, unspecified (ICD-10 - R53.82) 01/20/2025 Other fatigue (ICD-1 0 - R53.83) 01/20/2025 Abnormal weight gain (ICD-10 - R63.5) 04/02/2024 Other allergic rhini tis (ICD-10 - J30.89) 01/20/2025 Other malaise (ICD-1 0 - R53.81) 01/12/2025 Other malaise (ICD-1 0 - R53.81) 01/06/2025 Other malaise (ICD-1 0 - R53.81) 12/15/2024 Other allergic rhini tis (ICD-10 - J30.89) 12/30/2024 Other malaise (ICD-1 0 - R53.81) 12/01/2024 Enlarged lymph nodes , unspecified (ICD-10 - R59.9) Last visit I did not observe any gland swelling. Her trapezius is definitley inflammed - slated to have massage tonight -ENT has seen/felt her gland swelling - will closely observe. Await labs and consider CT -likely reactive, again not present on exam 11/17/2024 Other allergic rhini tis (ICD-10 - J30.89) 11/24/2024 Enlarged lymph nodes , unspecified (ICD-10 - R59.9) Last visit I did not observe any gland swelling. Her trapezius is definitley inflammed - slated to have massage tonight -ENT has seen/felt her gland swelling - will closely observe. 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 She is now taking QD. -Stepped up to Trelegy last visit with some improvement while she was sick - Continue AGUSTINA per AAP, back to using Symbicort 06/03/2024 Other malaise (ICD-1 0 - R53.81) 05/05/2024 Other allergic rhini tis (ICD-10 - J30.89) 05/06/2024 Other malaise (ICD-1 0 - R53.81) 04/15/2024 Other malaise (ICD-1 0 - R53.81) 04/14/2024 Other chronic sinusi tis (ICD-10 - J32.8) 04/01/2024 Other malaise (ICD-1 0 - R53.81) 03/25/2024 Other malaise (ICD-1 0 - R53.81) 03/17/2024 Other malaise (ICD-1 0 - R53.81) 03/11/2024 Other malaise (ICD-1 0 - R53.81) 03/03/2024 Other allergic rhini tis (ICD-10 - J30.89) 03/04/2024 Other malaise (ICD-1 0 - R53.81) 02/26/2024 Other malaise (ICD-1 0 - R53.81) 02/19/2024 Other malaise (ICD-1 0 - R53.81) 02/12/2024 Other malaise (ICD-1 0 - R53.81) 02/05/2024 Other malaise (ICD-1 0 - R53.81) 01/29/2024 Other malaise (ICD-1 0 - R53.81) 02/03/2024 Allergic rhinitis du e to animal (cat) (dog) hair and dander (ICD-10 - J30.81) Continue avoidance, meds and continue SCIT 01/29/2024 Other malaise (ICD-1 0 - R53.81) 01/29/2024 Abnormal weight gain (ICD-10 - R63.5) 02/03/2024 Other allergic rhini tis (ICD-10 - J30.89) Continue avoidance, meds and continue SCIT 03/03/2024 Allergic rhinitis du e to animal (cat) (dog) hair and dander (ICD-10 - J30.81) 04/02/2024 Allergic rhinitis du e to animal (cat) (dog) hair and dander (ICD-10 - J30.81) 05/05/2024 Allergic rhinitis du e to animal (cat) (dog) hair and dander (ICD-10 - J30.81) 06/01/2024 Allergic rhinitis du e to pollen (ICD-10 - J30.1) Lovely presents today for urgent visit due to lingering symptoms from a URI, otherwise has been doing well since sinus surgery with Dr. Yañez in 2021. - Continue SCIT, Lovely will hold dosing until she is over COVID - Continue triple pre-med, will send out TAC to use after shots - Continue daily meds as above. 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 She is now taking QD. 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 She is now taking QD. -Stepped up to Trelegy last visit with some improvement while she was sick. Back to Symbicort. Spirometry today is normal. 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 She is now taking QD. -Stepped up to Trelegy last visit with some improvement while she was sick. Back to Symbicort. Spirometry today is normal. - Continue AGUSTINA per AAP, back to using Symbicort 11/17/2024 Other chronic allerg ic conjunctivitis (ICD-10 - H10.45) 10/05/2024 Other chronic allerg ic conjunctivitis (ICD-10 - H10.45) 08/25/2024 Other chronic allerg ic conjunctivitis (ICD-10 - H10.45) 09/01/2024 Other chronic allerg ic conjunctivitis (ICD-10 - H10.45) 08/19/2024 Allergic rhinitis du e to pollen (ICD-10 - J30.1) Lovely presents today for urgent visit due to lingering symptoms from a URI, otherwise has been doing well since sinus surgery with Dr. Yañez in 2021. - Continue SCIT, Lovely will hold dosing until she is over COVID - Continue triple pre-med, will send out TAC to use after shots - Continue daily meds as above. 07/13/2024 Other chronic allerg ic conjunctivitis (ICD-10 - H10.45) 06/10/2024 Other chronic allerg ic conjunctivitis (ICD-10 - H10.45) 06/01/2024 Allergic rhinitis du e to animal (cat) (dog) hair and dander (ICD-10 - J30.81) Continue avoidance, meds and continue SCIT 05/05/2024 Other chronic allerg ic conjunctivitis (ICD-10 - H10.45) 04/02/2024 Other chronic allerg ic conjunctivitis (ICD-10 - H10.45) 03/03/2024 Other chronic allerg ic conjunctivitis (ICD-10 - H10.45) 02/03/2024 Other chronic allerg ic conjunctivitis (ICD-10 - H10.45) Given ocular signs and symptoms I strongly encouraged allergy avoidance measures, medications including intraocular antihistamine/mast cell stabilizer, PRN 02/03/2024 Chronic sinusitis, unspecified (ICD-10 - J32.9) - Recurrent sinusitis when off SCIT. Given her frequency of infection, we previously checked a modified PIDD-workup and vitamin D showing normal immunoglobulin and Vit D levels and inadequate pneumococal and hib protection. S/p vaccinations and repeat titers with improvement in titers. Pneumococcal titers increased from 07/29 to (~73%). Consider additonal vaccination with Prevnar 20 she if she continues to have infections. She had adequate Hib protection. - Lovely presents today for urgent visit due to suspected sinusitis, see plans above. Reports this is her first infection since her sinus surgery in 2021. Before we plan on additional boosters recommend rechecking labs + Vitamin D 06/01/2024 Other allergic rhini tis (ICD-10 - J30.89) Continue avoidance, meds and continue SCIT 08/19/2024 Allergic rhinitis du e to animal (cat) (dog) hair and dander (ICD-10 - J30.81) Continue avoidance, meds and continue SCIT 11/24/2024 Allergic rhinitis du e to pollen (ICD-10 - J30.1) Lovely presents today for urgent visit due to lingering symptoms from a URI, otherwise has been doing well since sinus surgery with Dr. Yañez in 2021. - Continue SCIT, dosing today tolerated w/o rxn - Continue triple pre-med, will send out TAC to use after shots - Continue daily meds as above. 12/01/2024 Allergic rhinitis du e to pollen (ICD-10 - J30.1) Lovely presents today for urgent visit due to lingering symptoms from a URI, otherwise has been doing well since sinus surgery with Dr. Yañez in 2021. - Continue SCIT, not due for dosing - Continue triple pre-med, will send out TAC to use after shots - Continue daily meds as above. 12/01/2024 Allergic rhinitis du e to animal (cat) (dog) hair and dander (ICD-10 - J30.81) Continue avoidance, meds and continue SCIT 11/24/2024 Allergic rhinitis du e to animal (cat) (dog) hair and dander (ICD-10 - J30.81) Continue avoidance, meds and continue SCIT 08/19/2024 Other allergic rhini tis (ICD-10 - J30.89) Continue avoidance, meds and continue SCIT 06/01/2024 Other chronic allerg ic conjunctivitis (ICD-10 - H10.45) Given ocular signs and symptoms I strongly encouraged allergy avoidance measures, medications including intraocular antihistamine/mast cell stabilizer, PRN 02/03/2024 Rash and other nonspecific skin eruption (ICD-10 - R21) History is not c/w IgE mediated food allergy or delayed anaphylaxis related to alpha-gal -recommend taking pictures of rashes -responds well to antihistamines, recommend Zyrtec over Benadryl -return for f/u to review log - none since last visit 02/03/2024 Vitamin D deficiency , unspecified (ICD-10 - E55.9) historically low, off supplemetation -plan to recheck now 06/01/2024 Rash and other nonspecific skin eruption (ICD-10 - R21) History is not c/w IgE mediated food allergy or delayed anaphylaxis related to alpha-gal -recommend taking pictures of rashes -responds well to antihistamines, recommend Zyrtec over Benadryl -return for f/u to review log - none since last visit 08/19/2024 Other chronic allerg ic conjunctivitis (ICD-10 - H10.45) Given ocular signs and symptoms I strongly encouraged allergy avoidance measures, medications including intraocular antihistamine/mast cell stabilizer, PRN 11/24/2024 Other allergic rhini tis (ICD-10 - J30.89) Continue avoidance, meds and continue SCIT 12/01/2024 Other allergic rhini tis (ICD-10 - J30.89) Continue avoidance, meds and continue SCIT 12/01/2024 Other chronic allerg ic conjunctivitis (ICD-10 - H10.45) Given ocular signs and symptoms I strongly encouraged allergy avoidance measures, medications including intraocular antihistamine/mast cell stabilizer, PRN 11/24/2024 Other chronic allerg ic conjunctivitis (ICD-10 - H10.45) Given ocular signs and symptoms I strongly encouraged allergy avoidance measures, medications including intraocular antihistamine/mast cell stabilizer, PRN 08/19/2024 Rash and other nonspecific skin eruption (ICD-10 - R21) History is not c/w IgE mediated food allergy or delayed anaphylaxis related to alpha-gal -recommend taking pictures of rashes-none recently -responds well to antihistamines, recommend Zyrtec over Benadryl 06/01/2024 Vitamin D deficiency , unspecified (ICD-10 - E55.9) historically low, off supplemetation -plan to recheck now 08/19/2024 Vitamin D deficiency , unspecified (ICD-10 - E55.9) historically low, off supplemetation -plan to recheck now 11/24/2024 Rash and other nonspecific skin eruption (ICD-10 - R21) History is not c/w IgE mediated food allergy or delayed anaphylaxis related to alpha-gal -recommend taking pictures of rashes-none recently -responds well to antihistamines, recommend Zyrtec over Benadryl 12/01/2024 Rash and other nonspecific skin eruption (ICD-10 - R21) History is not c/w IgE mediated food allergy or delayed anaphylaxis related to alpha-gal -recommend taking pictures of rashes-none recently -responds well to antihistamines, recommend Zyrtec over Benadryl 12/01/2024 Vitamin D deficiency , unspecified (ICD-10 - E55.9) historically low, off supplemetation -last check in 08/2024: 43 11/24/2024 Vitamin D deficiency , unspecified (ICD-10 - E55.9) historically low, off supplemetation -last check in 08/2024: 43 02/03/2024 Other 06/01/2024 Other 08/19/2024 Other 11/24/2024 Other 12/01/2024 Other Plan Of Treatment Pending Test Test Name Order Date STREPTOCOCCUS PNEUMONIAE IGG AB (23 SERO TYPES) 02/03/2024 STREPTOCOCCUS PNEUMONIAE IGG AB (23 SERO TYPES) 11/24/2024 DIPHTHERIA ANTITOXOID AND TETANUS ANTITO XOID ANTIBODIES 11/24/2024 TETANUS ANTITOXOID ANTIBODY (EIA) 2023 TETANUS ANTITOXOID ANTIBODY (EIA) 2023 DIPHTHERIA ANTITOXOID ANTIBODY DIPHTHERIA ANTITOXOID ANTIBODY HAEMOPHILUS INFLUENZAE B ANTIBODY, IGG 0 02/03/2024 HAEMOPHILUS INFLUENZAE B ANTIBODY, IGG 0 11/24/2024 -HRT Female Pre Pellet 01/29/2024 STREPTOCOCCUS PNEUMONIAE AB (IGG) (23 SE ROTYPES) 02/17/2024 S. PNEUMONIAE IGG AB, 23 SEROTYPES, S Next Appt Details Provider Name:Moses RobledoCheryl Corley , 01/27/2025 02:30:00 PM, [address]22 [address], [address], [address], Insurance Providers Payer Name Payer Address Payer Phone Subscriber Number Group Number Insured Name Patient Relationship to Insured Coverage Start Date Coverage End Date [facility] [address] [place] [address] [id number] Lovely Cunningham Self - patient is the insured Medical (General) History Medical History History ICD Code Depression Allergic rhinoconjunctivitis Infertility Allergic rhinitis due to pollen J30.1 Allergic rhinitis due to animal (cat) (d og) hair and dander J30.81 Other allergic rhinitis J30.89 Other chronic allergic conjunctivitis H1 0.45 Idiopathic urticaria L50.1 Other specified dermatitis L30.8 Rash and other nonspecific skin eruption R21 Chronic sinusitis, unspecified J32.9 Pure hypercholesterolemia, unspecified E 78.00 Essential (primary) hypertension I10 Surgical History Surgery Date(Month/Year) T&A 2009 IVF 2006 Hysteroscopy 2006 Oral surgery-[facility] 2004 Wrist Repair 2018 Pelvic Ablation 2018 Sinus surgery 11/15/21 Wrist Surgery 09/2024 Hospitalization History Reason Date(Month/Year) Black outs 01/2013
--- OUTSIDE RECORDS SUMMARY | 2025-01-21 15:23 | XMS_ITS ---
Author Organization [facility] Address [address] [place] [address] Care Team Providers Care Travel Occupational Therapist Name Role Phone Yaneth Antione Primary Care Provider UnavailAdriana Obando Unavailable [phone] [facility] Unavailable [phone] REASON FOR VISIT [facility] Weight [facility], on Tirzepatide, improved appetite suppression, reports nausea the day after the last shot. Advised to take additional probiotics., Desired weight loss: 10-15 lbs, -1.4 lbs since last visit, -7.9 lbs total, No history MTC or MEN2 or pancreatitis, Concerned about future DM and OA Medications Medication SIG (Take, Route, Frequency, Duration) Notes Start Date End Date Status Ipratropium Kindred 0.06 % 2 spray(s) intranasally 3 times [...] and re-order from Quick Search* 12/17/2023 Not-Taking SIT (TRADITIONAL) VARIABLE PER SCHEDULE SC PER SCHEDULE for TO BE DETERMINED *Please review for potential replacement for e-prescription and drug interaction check* Not-Taking Montelukast Sodium 10 MG TAKE 1 TABLET BY MOUTH DAILY for 30 Not-Taking OLOPATADINE NASAL 665 MCG/INH 2 SPRAY(S) INTRANASALLY 2 TIMES A DAY for 30 DAYS *Please review for potential replacement for e-prescription and drug interaction check* Not-Taking Paxlovid (300/100) 20 x 150 MG & 10 x 100MG 3 tablets Orally Twice a day for 5 days 06/01/2024 Not-Taking Pataday 0.2 % 1 gtt in each affected eye once a day Not-Taking Mupirocin 2 % 1 application Externally Twice a day for 5 day(s) 11/24/2024 Active Flonase Allergy Relief 50 MCG/ACT 1 spray(s) intranasally twice a day for 30 days Active Auvi-Q 0.3 MG/0.3ML as directed intramuscularly once for 30 day(s) Active SUDAFED PE PRESSURE PLUS PAIN 325 MG-5 MG 2 TAB(S) ORALLY EVERY 4 HOURS *Please review for potential replacement for e-prescription and drug interaction check* Active ZyrTEC Allergy 10 MG 2 tab(s) orally Qday, and prior to SCIT dosing Active Lo Loestrin Fe 1 MG-10 MCG / 10 MCG 1 tab(s) orally once a day Active Atorvastatin Calcium 10 MG 1 tab(s) orally once a day Active D3 2000 INTL UNITS DIRECTED ORALLY ONCE A DAY for 30 DAY(S) *Please review and pick correct strength-formula tion from Common Curriculuman options. If intended option is not shown, discontinue and re-order from Quick Search* Active Singulair 10 MG 1 tab(s) orally once a day for 30 day(s) Active FLUoxetine HCl 20 MG 1 cap(s) orally once a day Active Azelastine HCl 137 MCG/SPRAY 2 spray(s) intranasally 2 times a day for 30 day(s) 11/15/2021 Active Symbicort 160-4.5 MCG/ACT INHALE 2 PUFFS BY MOUTH TWICE DAILY for 30 Active Nasal [place]hes N/A as directed intranasally Active amLODIPine Besylate 2.5 MG 1 tab(s) orally once a day for 30 day(s) 05/30/2021 Active TRIAMCINOLONE ACETONIDE TOPICAL 0.1% 1 tomas applied topically twice a day after shots for 7 days Active SYMBICORT 160 mcg-4.5 mcg/inh 2 puff(s) inhaled 2 times a day for 30 days Active MONTELUKAST SODIUM 10 mg 1 tab(s) orally once a day for 30 day(s) Active AZELASTINE HYDROCHLORIDE NASAL 137 mcg/inh 2 spray(s) intranasally 2 times a day for 30 days Active VORTEX HOLDING CHAMBER as directed Active PROAIR HFA CFC free 90 mcg/inh 2 puff(s) inhaled 4 times a day Active SIT (TRADITIONAL) variable per schedule SC per schedule for to be determined Active FLONASE 50 mcg/inh 1 spray(s) intranasally twice a day for 30 days Active AUVI -Q 0.3 mg as directed intramuscularly once for 30 day(s) Active DICYCLOMINE 10 mg 2 cap(s) orally [...] the entire family for 30 day(s) Active ATORVASTATIN 10 mg 1 tab(s) orally once a day Active FLUOXETINE 20 mg 1 cap(s) orally once a day Active LO LOESTRIN FE with iron biphasic 10 mcg-1 mg 1 tab(s) orally once a day Active Famotidine 40 mg 1 tab(s) orally 30 mins prior to SCIT for 30 days Active Vital Signs Height 62.4 in 01/20/2025 Weight 136.4 lbs 01/20/2025 BMI 24.63 kg/m2 01/20/2025 Encounters Encounter Location Date Provider Diagnosis [facility] [place] ([address]) [address] [address] 01/20/2025 Moses Corley Chronic fatigue, unspecified R53.82 ; Other fatigue R53.83 ; Abnormal weight gain R63.5 and Other malaise R53.81 Assessments Encounter Date Diagnosis (ICD Code) Assessment Notes Treatment Notes Treatment Clinical Notes Section Notes 01/20/2025 Chronic fatigue, unspecified (ICD-10 - R53.82) 01/20/2025 Other fatigue (ICD-10 - R53.83) 01/20/2025 Abnormal weight gain (ICD-10 - R63.5) 01/20/2025 Other malaise (ICD-10 - R53.81) Plan Of Treatment Next Appt Details Follow Up: 1 Week, Reason: G LP-1 Agonist Administration Provider Name:Moses Corley , 01/27/2025 02:30:00 PM, [address]22 [address], [address], [address], Procedure Notes * Category Sub-Category Detail Notes [facility]: Weight Management tirzepatide Indication: weig ht loss Concentration: 10 mg/mL Volume Administered: 0.2 mL Dose Administered: 2 mg Route: SQ Location: [facility] Frequency: weekly Lot Number/Expiration: Medication Source: Nutraceutical Comp ounding Adverse Reaction: None Progress Notes * Karime GUZMANOB:1975 ( 49 yo F)Acc No.[id number]:01/20/2025 Weight Loss Patient: Lovely HERNANDEZ Provider: Madelin Corley MD :1975 A ge:49 Y S ex:Female Date:01/20/2025 Address:[address] [place] [address] Pcp:Antione Wolfe Subjective: * Chief Complaints: * 1 . [facility], on Tirzepatide, improved appetite suppression, reports nausea the day after the last shot. Advised to take additional probiotics.. 2. Desired weight loss: 10-15 lbs, -1.4 lbs since last visit, -7.9 lbs total. 3. No history MTC or [...] *Please review and pick correct strength-formulation from [employer] options. If intended option is not shown, discontinue and re-order from Quick Search*, Not-Taking/PRN Dicyclomine HCl 10 MG Capsule 2 cap(s) orally 4 times a day , Notes to Pharmacist: PRN, Not-Taking/PRN Symbicort 160-4.5 MCG/ACT Aerosol 2 puff(s) inhaled 2 times a day , Not-Taking/PRN Ipratropium Kindred 0.06 % Solution 2 spray(s) intranasally 3 times a day , Not-Taking/PRN SIT (CLUSTER) VARIABLE SEE RECORD PER SCHEDULE SC PER SCHEDULE , Notes to Pharmacist: *Please review for potential replacement for e-prescription and drug interaction check* Objective: * Vitals: H t: 62.4 in, Wt: 136.4 lbs, BMI:24.63Index. Assessment: * Assessment: 1. A bnormal weight [...] requency w eekly L ot Number/Expiration 0 -2024 M edication Source A H Nutraceutical Compounding A dverse Reaction N one * Follow Up: 1 Week (Reason: GLP-1 Agonist Administration) * Billing Information: * Visit Code: * Procedure Codes: 57759 [facility] - Weekly (tirzepatide) (0.5-5 mg) Tier 1. * Electronic signature of Sulema Corley MD, FAAAAI on 01/21/2025 at 03:23 PM CDT Sign off status: Pending * Provider: Madelin Corley MD Date: 0 01/20/2025 Generated for Korina bello/Wojciech/lAkaitting on: 0 01/21/2025 03:23 PM CDT
--- OUTSIDE RECORDS SUMMARY | 2025-01-21 15:23 | XMS_ITS | Clinical Summary ---
Author Organization [facility] Address [address] [facility] [place] [address] Care Team Providers Care Helicopter Engineer Name Role Phone Antione Wolfe MD Primary Care Provider [phone] Source Comments [facility],non-owned Affiliates and Associated Physician Practices is amultiple site organization consisting of ambulatory clinics and hospital sitesin [place], [place] and [place]. This disclosure is being madepursuant to the Care Everywhere program and may not contain all information available regarding this patient. Last updated 18.[facility] Allergies Active Allergy Reactions Criticality Noted Date Comments Levofloxacin Swelling Medium 08/05/2019 Rqutcimh-Ofixswqgkb-Hoixvwgts Rash Medium 2018 Neomycin-Polymyxin B Rash Medium 10/31/2019 Paroxetine Rash Medium 08/05/2019 Medications * Be aware that medications may not be up to date on this document. Alwaysverify current medications with the patient. FLUoxetine (PROZAC) 20 MG capsule fluoxetine 20 mg capsule 9 Active Spacer/Aero-Ho lding Chambers (VORTEX VALVED HOLDING CHAMBER) CATHY Vortex Holding Chamber U UTD Active aspirin buffered (BUFFERIN) 325 MG tablet 81 mg Active atorvastatin (LIPITOR) 10 MG tablet atorvastatin 10 mg tablet 9 Active cetirizine (ZYRTEC) 10 MG tablet Take 1 (one) tablet by mouth once daily Active EPINEPHrine (EPIPEN) 0.3 MG/0.3ML auto-injector pen EpiPen 2-Waqas 0.3 mg/0.3 mL injection, auto-injector INJ 0.3 MG IM ONCE MANY GIVE A SECOND DOSE IN 10 TO 15 MINUTES FOR PERSISTENT SYSTOMS Active budesonide-for moterol (Symbicort) 160-4.5 MCG/ACT inhaler Inhale 2 (two) puffs by mouth 2 times daily Active montelukast (Singulair) 10 MG tablet Take 1 (one) tablet by mouth at bedtime Active fluticasone propionate (Flonase) 50 MCG/ACT nasal spray [place] 2 (two) sprays into each nostril Active azelastine (Astelin) 0.1 % nasal spray [place] 1 (one) spray into each nostril 2 times daily Active albuterol HFA (PROAIR HFA) 108 (90 Base) MCG/ACT inhaler ProAir HFA 90 mcg/actuation aerosol inhaler INL 2 PFS PO QID 025 Discontin ued(List Clean-Up) Active Problems Problem Noted Date Diagnosed Date Non-seasonal allergic rhinitis 01/07/2025 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 She received 2 boosters of Pneumovax 23 (04/2024 and 06/2024 prior to her most recent labs) She had also received Prevnar 20 on 02/18/2024 Encounters Date Type Department Care Team Description 01/07/2025 11:09 AM CDT - 01/07/2025 11:59 PM T Hospital Encounter [facility] [address] [place] [address] Discharge Disposition: Home or Self Care 01/07/2025 10:00 AM CDT Office Visit 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 (HCC); Chronic cough; Chronic rhinosinusitis; Recurrent infections 01/07/2025 Travel 12/16/2024 Travel from Last 3 Months Social History Tobacco Use Types Packs/Day Years Used Date Smoking Tobacco: Never Smokeless Tobacco: Never Alcohol Use Standard Drinks/Week Comments Never 0 (1 standard drink = 0.6 oz pur e alcohol) AUDIT-C Answer Date Recorded Frequency of Alcohol Consumption Never 10/31/2019 Average Number of Drinks Not on file 020 Frequency of Binge Drinking Not on file 10/08 Comments Unknown Sex and Gender Information Value Date Recorded Sex Assigned at Not on file Legal Sex Female 8:41 AM VINER OPERATOR Gender Identity Not on file Sexual Orientation Not on file Last Filed Vital Signs Vital Sign Reading Time Taken Comments Blood Pressure 127/84 01/07/2025 9:43 AM CDT Pulse 82 01/07/2025 9:43 AM CDT Temperature 36.4 C (97.5 F) 01/07/2025 9:43 AM CDT Respiratory Rate 20 10/31/2019 10:3 3 AM VINER OPERATOR Oxygen Saturation 98% 01/07/2025 9:43 AM CDT Inhaled Oxygen Concentration - - Weight 63.4 kg (139 lb 12.8 oz) 01/07/2025 9:43 AM CDT Height 160 cm (5' 3 ) 10/31/2019 10:33 AM VINER OPERATOR Body Mass Index 24.76 10/31/2019 10:33 AM VINER OPERATOR Plan of Treatment Upcoming Encounters Date Type Department Care Team (Late st Contact Info) Description 05/06/2025 11:30 AM CDT Office Visit [facility] - Allergy [address] [facility] [place] [address] Edmond Le MD [address] [place] [address] Health Maintenance Due Date Last Done Comments COLON MONITORING 1975 COLONOSCOPY - COLON CA SCREENING 1975 CT COLONOGRAPHY - COLON CA SCREENING 1975 FIT - COLON CA SCREENING 1975 FLEX SIG - COLON CA SCREENING 1975 MAMMOGRAM 1975 PAP SMEAR 1975 HIV SCREENING 1990 HEPATITIS C SCREENING 07/04/1993 DTAP/TDAP/TD VACCINES (1 - Tdap) 1994 HEPATITIS B VACCINE (1 of 3 - 19+ 3-dose series) 1994 ZOSTER VACCINE (1 of 2) 1994 DEPRESSION SCREENING 10/07/2024 COVID-19 VACCINE (7 - Pfizer risk season) 2025 07/07/2024, 06/30/2023, 07/06/2022, Additional history exists COLOGUARD (AGES 45-75) - COLON CA SCREENING 03/08/2025 03/08/2022 Colorectal Cancer Screening 03/08/2025 INFLUENZA VACCINE Completed 07/07/2024, , 08/17/2022, Additional history exists HIB VACCINE Aged Out No longer eligi ble based on patient's age to complete this topic HPV VACCINE Aged Out No longer eligi ble based on patient's age to complete this topic MENINGOCOCCAL (Group B) VACCINE SHARED DECISION-MAKING Aged Out No longer eligible based on patient's age to complete this topic MENINGOCOCCAL GROUPS A/C/Y/W VACCINE Aged Out No longer eligible based on patient's age to complete this topic Procedures Procedure Name Priority Date/Time Associated Diagnosis Comments FLOW CYTOMETRY JERAMY MEDIUM PANEL Routine 01/07/2025 11:40 AM CDT 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 (HCC) Recurrent infections CBC W AUTO DIFFERENTIAL Routine 01/07/2025 11:40 AM CDT 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 (HCC) Recurrent infections IGG SUBCLASSES PANEL Routine 01/07/2025 11:40 AM CDT 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 (HCC) Recurrent infections from Last 3 Months Results * FLOW CYTOMETRY JERAMY MEDIUM PANEL (01/07/2025 11:40 AM CDT) Reason for test 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 (HCC) Recurrent infections 136.9 01/07/2025 3:52 PM CDT [facility] Client Specimen ID # [id number] 01/07/2025 3:52 PM CDT [facility] Number of Markers 9 01/07/2025 3:52 PM CDT [facility] Flow Cytometry Results Differential Result Comment WBC Count /uL 7,500 % Lymphocytes 25 Lymphocyte Count u/L 1,875 01/07/2025 3:52 [facility] Flow Cytometry Results (Continued) Cell Region A: Lymphocytes Dual Labeled Results Results % Absolute Count (cells/uL) CD3 79 1,481 CD3+CD4+ 57 1,069 CD3+CD8+ 18 338 CD4:CD8 Ratio 3.17 CD19 8 150 CD27 76 1,425 CD56 11 206 sIgD 5 94 %CD4 & CD45RO 71 759 %CD4 &CD45RA 28 299 %CD27 & CD19 6 86 %CD19 & CD27 50 75 %CD19 & CD27 + IgD+ 19 29 %CD19 & CD27 + IgD- 31 47 %CD19 & CD27 - IgD+ 85 128 01/07/2025 3:52 PM [facility] Flow Cytometry Interpretation Testing is technical only and does not require an interpretation of results. 01/07/2025 3:52 PM [facility] Reference Range Adult Normal Reference Range Adult (> 18 years) CD3 54-84 % CD4 33-63 % CD8 12-39 % CD19 5-19 % CD56 6-26 % CD4+CD45RA+ 30-50 % CD4+CD45RO+ 17-42 % CD19+CD27+ 7-48 % CD19+CD27+IgD+ 7-29 % CD19+CD27+IgD- 3-23 % CD19+XY11-VqB+ 29-93 % % 01/07/2025 3:52 PM [facility] Disclaimer Test performed at [facility], [address] [place] [address], [address]. This test was developed and its performance characteristics determined by the Flow Cytometry Laboratory. It has not been cleared by the [place] Food and Drug Administration (FDA). The FDA has determined that such clearance or approval is not necessary. This test is used for clinical purposes. It should not be regarded as investigational or for research. This laboratory is regulated under the Clinical Laboratory Improvement Amendments of 1998 (CLIA) as a qualified to perform high complexity clinical testing. By law [place], CD4 lymphocyte counts on patients with HIV infection must be reported by the physician to the State Health authority. 01/07/2025 3:52 PM CDT [facility] Embedded Images 3:52 PM CDT [facility] Blood BLOOD SPECIMEN / Unknown Lab Venipuncture / Unknown 01/07/2025 11:40 AM CDT 01/07/2025 12:53 PM CDT Edmond Le MD LAB - PATHOLOGY/CYTOLOGY ORDERA BLES Final Result [facility] [address] [phone] * IGG SUBCLASSES PANEL (01/07/2025 11:40 AM CDT) IgG Subclass 1 429 240 - 1118 mg/dL 01/08/2025 7:52 PM CDT [facility] ([facility]) Comment: REFERENCE INTERVAL: Immunoglobulin G Subclass 1 The total IgG (mg/dL) can be derived from the sum of the subclass IgG1, IgG2, IgG3, and IgG4 values. However, a confirmatory and more precise total IgG is available by the turbidimetric method of quantitation for total IgG. Refer to test Immunoglobulin G, Serum ([id number]). Access complete set of age- and/or gender-specific reference intervals for this test in the [facility] Test Directory ([facility]). IgG Subclass 2 342 124 - 549 mg/dL 01/08/2025 7:52 PM CDT [facility] ([facility]) Comment: REFERENCE INTERVAL: Immunoglobulin G Subclass 2 Access complete set of age- and/or gender-specific reference intervals for this test in the [facility] Test Directory ([place]). IgG Subclass 3 75 21 - 134 mg/dL 01/08/2025 7:52 PM CDT [facility] ([facility]) Comment: REFERENCE INTERVAL: Immunoglobulin G Subclass 3 Access complete set of age- and/or gender-specific reference intervals for this test in the [facility] Test Directory ([place]). IgG Subclass 4 51 1 - 123 mg/dL 01/08/2025 7:52 PM CDT [facility] ([facility]) Comment: REFERENCE INTERVAL: Immunoglobulin G Subclass 4 Access complete set of age- and/or gender-specific reference intervals for this test in the [facility] Test Directory ([place]). Performed By: [facility] [address] [place] [address] Training Assistant: Branden Brice MD, PhD CLIA Number: [id number] Blood BLOOD SPECIMEN / Unknown Lab Venipuncture / Unknown 01/07/2025 11:40 AM CDT 01/07/2025 11:57 AM CDT Edmond Le MD LAB - CHEMISTRY ORDERABLES Lucrecia rae Result [facility] ([facility]) [address] [place] [address], [facility] * CBC W/ DIFFERENTIAL (01/07/2025 11:40 AM CDT) WBC 7.5 4.0 - 10.7 x10E9/L 01/07/2025 12:13 PM [facility] RBC Count 4.60 3.90 - 5.20 x10E12/L 01/07/2025 12:13 PM [facility] Hemoglobin 14.6 11.9 - 15.8 g/dL 01/07/2025 12:13 PM [facility] Hematocrit 43.4 34.8 - 46.1 % 01/07/2025 12:13 PM [facility] MCV 94.3 80.0 - 98.0 fL 01/07/2025 12:13 PM [facility] MCH 31.7 26.7 - 33.6 pg 01/07/2025 12:13 PM [facility] MCHC 33.6 31.7 - 36.3 g/dL 01/07/2025 12:13 PM [facility] RDW-CV 12.3 11.3 - 14.8 % 01/07/2025 12:13 PM [facility] Platelet Count 357 150 - 420 x10E9/L 01/07/2025 12:13 PM [facility] MPV 9.5 7.8 - 11.4 fL 01/07/2025 12:13 PM [facility] Neutrophil % 67.8 41.0 - 74.0 % 01/07/2025 12:13 PM [facility] Lymphocyte % 22.8 17.0 - 47.0 % 01/07/2025 12:13 PM [facility] Monocyte % 8.2 3.0 - 11.0 % 01/07/2025 12:13 PM [facility] Eosinophil % 0.3 0.0 - 7.0 % 01/07/2025 12:13 PM [facility] Basophil % 0.5 0.0 - 1.6 % 01/07/2025 12:13 PM [facility] Immature Granulocytes % 0.4 0.0 - 1.0 % 01/07/2025 12:13 PM [facility] Neutrophil Absolute 5.05 1.60 - 7.50 x10E9/L 01/07/2025 12:13 PM [facility] Lymphocyte Absolute 1.70 1.00 - 4.40 x10E9/L 01/07/2025 12:13 PM [facility] Monocyte Absolute 0.61 0.15 - 1.00 x10E9/L 01/07/2025 12:13 PM [facility] Eosinophil Absolute 0.02 0.00 - 0.60 x10E9/L 01/07/2025 12:13 PM [facility] Basophil Absolute 0.04 0.00 - 0.13 x10E9/L 01/07/2025 12:13 PM [facility] Blood BLOOD SPECIMEN / Unknown Lab Venipuncture / Unknown 01/07/2025 11:40 AM CDT 01/07/2025 12:04 PM CDT us Edmond Le MD LAB - HEMATOLOGY ORDERABLES Fin al Result [facility] [address] [place] [address], [facility] [phone] from Last 3 Months Insurance ANTHEM Care Teams Helicopter Engineer Relationship Specialty Start Date End Date Antione Wolfe MD [facility] [place] [address] PCP - General Family Medicine 10/31/19
== END 2025-01-21 15:20 | disposition home or self-care (01) ==
PROVIDERS: PCP Family Medicine; Visit Provider Obstetrics & Gynecology
DX: Z12.31 Encounter for screening mammogram for malignant neoplasm of breast (principal)
CPT/HCPCS: 77063; 77067